=== PATIENT | male | born 1960 | race American Indian/Alaskan Native ===

== ENCOUNTER 2017-07-23 08:31 | Inpatient (IN) | payer BC ==
[~2017-07-23] VITALS: Ht 188 cm; Wt 133.4 kg
[2017-07-23] VITALS (14 sets, daily range): BP systolic 98–155; BP diastolic 52–68
[2017-07-23] MEDS ORDERED: midazolam 100mg in NS 100ml 100 ML IV PRN (08:45)
[2017-07-23] MEDS ORDERED: FENTANYL-0.9 % NACL/PF 100 ML IV PRN (08:45)
[2017-07-23] MEDS ORDERED: fentaNYL/PF 50MCG/1 ML 2ML syringe IV PRN (09:10)
[2017-07-23] MEDS ORDERED: potassium Cl 20 mEq SR tablet PO PRN (09:10)
[2017-07-23] MEDS ORDERED: midazolam 2 mg/2 ml injection IV ONE (09:10)
[2017-07-23] MEDS ORDERED: acetaminophen 325mg tablet PO PRN (09:10)
[2017-07-23] MEDS ORDERED: potassium Cl 40MEQ/NS 500ml 500 ML IV PRN ×2 (09:10)
[2017-07-23] MEDS ORDERED: potassium Cl 40MEQ/250ML bag 250 ML IV SCH (09:10)
[2017-07-23] MEDS ORDERED: ondansetron/PF 4mg/2ml inj IV PRN (09:10)
[2017-07-23] MEDS ORDERED: ipratropium/albuterol 3ml nebule NEB PRN (09:10)
[2017-07-23] MEDS ORDERED: normal saline 1000ml 1,000 ML IV SCH (09:10)
[2017-07-23 09:21] LABS: ABG BASE EXCESS -0.5 mmol/L (-2.0-3.0); ABG HCO3 22.8 mmol/L (22.0-26.0); ABG OXYGEN SATURATION 97.1 % (95-98); ABG PCO2 (T) 30.5 mmHg (35.0-48.0); ABG PH (T) 7.491 (7.350-7.450); FCOHb 0.1 % (0.5-1.5); FMetHb 0.1 % (0.3-1.12); FO2Hb 96.9 % (94-100); MINUTE VOLUME 10 L/min; PEEP 5 cm H2O; RESPIRATORY RATE 14 b/min; RESPIRATORY RATE (OBSERVED) 25 b/min; TIDAL VOLUME 450 mL; TOTAL HEMOGLOBIN 5.7 G/dl (14.0-18.0)
[2017-07-23] MEDS: midazolam 100mg in NS 100ml 100 ML IV PRN (09:32)
[2017-07-23] MEDS: FENTANYL-0.9 % NACL/PF 100 ML IV PRN (09:33)
[2017-07-23 09:38] LABS: BASOPHILS % (AUTO) 0.2 % (0-1); EOSINOPHILS # (AUTO) 0.4 X10'3 (0-0.9); EOSINOPHILS % (AUTO) 3.3 % (0-6); HEMATOCRIT 26.3 % (42.0-52.0); HEMOGLOBIN 8.7 g/dl (14.0-17.9); LYMPHOCYTES # (AUTO) 1.5 X10'3 (1.1-4.8); LYMPHOCYTES % (AUTO) 12.4 % (21-51); MEAN CORPUSCULAR HGB CONC 33.3 % (33.0-36.5); MEAN PLATELET VOLUME 13.1 FL (7.4-10.4); MONOCYTES # (AUTO) 0.6 X10'3 (0-0.9); MONOCYTES % (AUTO) 4.9 % (2-12); NEUTROPHILS # (AUTO) 9.6 X10'3 (1.8-7.7); NEUTROPHILS % (AUTO) 79.2 % (42-75); PLATELET COUNT 128 X10'3 (140-440); RED CELL DISTRIBUTION WIDTH 19.4 % (11.5-14.5); WHITE BLOOD COUNT 12.2 X10'3 (4.5-11.0)
[2017-07-23 09:49] LABS: TOTAL CELLS COUNTED 100
[2017-07-23 09:50] LABS: ANISOCYTOSIS 2+; PLATELET ESTIMATE DECREASED; POLYCHROMASIA 1+; TARGET CELLS FEW
[2017-07-23 09:51] LABS: PLATELET COUNT 128 X10'3 (140-440)
[2017-07-23 09:54] LABS: ALANINE AMINOTRANSFERASE 18 U/L (12-78); ALBUMIN 1.2 G/DL (3.4-5.0); ALKALINE PHOSPHATASE 117 IU/L (46-116); ANION GAP 12 (8-16); ASPARTATE AMINO TRANSFERASE 75 U/L (10-37); BILIRUBIN,TOTAL 5.8 MG/DL (0.1-1.0); BLOOD UREA NITROGEN 75 MG/DL (7-18); BUN/CREATININE RATIO 32.6 (5.4-32.0); CALCIUM 7.6 MG/DL (8.5-10.1); CHLORIDE 117 MMOL/L (99-107); MAGNESIUM 2.1 MG/DL (1.5-2.4); TOTAL CARBON DIOXIDE 25.7 MMOL/L (24-32); eGFR 30 ML/MIN
[2017-07-23 10:11] LABS: ALBUMIN/GLOBULIN RATIO 0.2 (1.1-1.5); TOTAL PROTEIN 8.1 G/DL (6.4-8.2)
[2017-07-23 10:16] LABS: GLUCOSE 190 MG/DL (70-104); PHOSPHORUS 4.3 MG/DL (2.3-4.5)
[2017-07-23 10:18] LABS: SODIUM 155 MMOL/L (135-145)
[2017-07-23 10:19] LABS: POTASSIUM 2.4 MMOL/L (3.5-5.1)
[2017-07-23 10:32] LABS: INR 2.1 INR; PARTIAL THROMBOPLASTIN TIME 46 SECONDS (22-32); PROTHROMBIN TIME 21.1 SECONDS (9.0-12.0)
[2017-07-23] MEDS: ipratropium/albuterol 3ml nebule NEB SCH ×4 (11:21→23:54)
[2017-07-23] MEDS ORDERED: dextrose 50%-water 50ml dispensing syringe IV PRN ×2 (11:40)
[2017-07-23] MEDS ORDERED: glucagon, human recombinant 1mg kit SUBCUT PRN (11:40)
[2017-07-23] MEDS ORDERED: MESSAGE TO PHARMACY PO ONE (11:40)
[2017-07-23] MEDS ORDERED: dextrose ORAL solution 15 GM/59 ML bottle PO PRN ×2 (11:40)
[2017-07-23] MEDS ORDERED: insulin regular, human vial - multi-dose SQ SCH (11:40)
[2017-07-23] MEDS ORDERED: insulin Lispro (HumaLOG) vial - multi-dose SQ SCH (11:40)
[2017-07-23 12:09] LABS: HEMOGLOBIN A1C 6.9 % (4.5-6.2)
[2017-07-23] MEDS: potassium Cl 40MEQ/250ML bag 250 ML IV PRN (12:39)
[2017-07-23] MEDS ORDERED: PANT40VI2 IV (14:34)
[2017-07-23] MEDS ORDERED: DOCU100C41 PO (14:34)
[2017-07-23] MEDS ORDERED: SENN-161 PO (14:34)
[2017-07-23] MEDS ORDERED: NYST1000 PO (14:34)
[2017-07-23] MEDS ORDERED: MULT1TAB74 PO (14:34)
[2017-07-23] MEDS ORDERED: THI100T PO (14:34)
[2017-07-23] MEDS ORDERED: LACTC PO (14:34)
[2017-07-23] MEDS ORDERED: INSU100V9 SQ (14:34)
[2017-07-23] MEDS ORDERED: FOLI1TAB16 PO (14:34)
[2017-07-23] MEDS: cefazolin 1gm/NS 100mL 100 ML IV SCH (17:04)
[2017-07-23 17:07] LABS: CLARITY,URINE SLIGHTLY CLOUDY (Clear); COLOR,URINE YELLOW (Yellow); GLUCOSE, URINE NEGATIVE (Neg); KETONES,URINE TRACE mg/dl (Neg); LEUKOCYTE ESTERASE ,URINE MODERATE (Neg); NITRITES, URINE NEGATIVE (Neg); OCCULT BLOOD,URINE LARGE (Neg); PH,URINE 5.5 (4.8-8.0); PROTEIN,URINE 30 mg/dl (Neg)
[2017-07-23 17:16] LABS: UA COLLECTION TYPE FOLEY CATH
[2017-07-23 17:17] LABS: RBC,URINE 20-50 /HPF (0-2)
[2017-07-23 17:18] LABS: BACTERIA,URINE FEW /HPF (Neg); MUCUS STRANDS FEW /LPF (Neg); SQUAMOUS EPITHELIAL CELL,UR FEW /LPF (FEW)
[2017-07-23 17:36] LABS: UA EOSINOPHILS NO EOS /HPF
[2017-07-23] MEDS: docusate sod 100mg capsule PO SCH (20:00)
[2017-07-23] MEDS ORDERED: docusate sod 100mg capsule PO SCH (20:00)
[2017-07-23] MEDS: lactobacillus rhamnosus 10,000 MMU CELLS/CAPSULE PO SCH (20:01)
[2017-07-23] MEDS: famotidine/PF 10 mg/ml inj IV SCH (20:03)
[2017-07-23 20:39] LABS: ALBUMIN 0.9 G/DL (3.4-5.0); BLOOD UREA NITROGEN 69 MG/DL (7-18); BUN/CREATININE RATIO 36.3 (5.4-32.0); CALCIUM 6.8 MG/DL (8.5-10.1); CHLORIDE 121 MMOL/L (99-107); TOTAL CARBON DIOXIDE 22.2 MMOL/L (24-32); eGFR 37 ML/MIN
[2017-07-23 20:52] LABS: ANION GAP 12 (8-16); POTASSIUM 3.2 MMOL/L (3.5-5.1)
[2017-07-23] MEDS ORDERED: INSULIN GLARGINE HUM REC ANLOG 6 UNIT SQ SCH (21:00)
[2017-07-23] MEDS: insulin glargine (Lantus) pen - multi-dose SQ SCH (21:00)
[2017-07-23 21:05] LABS: GLUCOSE 146 MG/DL (70-104)
[2017-07-23 21:06] LABS: SODIUM 155 MMOL/L (135-145)
[2017-07-23] MEDS ORDERED: potassium Cl 40MEQ/250ML bag 250 ML IV ONE (21:20)
[2017-07-23] MEDS ORDERED: sodium chloride 0.45% 1,000 ML IV SCH (21:21)
[2017-07-24] VITALS (23 sets, daily range): BP systolic 102–153; BP diastolic 47–70
[2017-07-24] MEDS: ipratropium/albuterol 3ml nebule NEB SCH ×6 (03:22→23:06)
[2017-07-24 04:25] LABS: ABG BASE EXCESS -1.4 mmol/L (-2.0-3.0); ABG HCO3 21.6 mmol/L (22.0-26.0); ABG PCO2 (T) 29.5 mmHg (35.0-48.0); ABG PH (T) 7.482 (7.350-7.450); ABG PO2 (T) 94.5 mmHg (83-108); ALLEN'S TEST Positive; FCOHb 0.3 % (0.5-1.5); FO2Hb 96.7 % (94-100); MINUTE VOLUME 15 L/min; PEEP 5 cm H2O; RESPIRATORY RATE 16 b/min; RESPIRATORY RATE (OBSERVED) 34 b/min; TIDAL VOLUME 400 mL; TOTAL HEMOGLOBIN 8.2 G/dl (14.0-18.0)
[2017-07-24 05:31] LABS: BASOPHILS % (AUTO) 0.4 % (0-1); EOSINOPHILS # (AUTO) 0.4 X10'3 (0-0.9); EOSINOPHILS % (AUTO) 3.5 % (0-6); HEMATOCRIT 24.3 % (42.0-52.0); HEMOGLOBIN 8.2 g/dl (14.0-17.9); LYMPHOCYTES # (AUTO) 1.8 X10'3 (1.1-4.8); LYMPHOCYTES % (AUTO) 14.1 % (21-51); MEAN CORPUSCULAR HEMOGLOBIN 34.9 PG (27.0-31.0); MEAN CORPUSCULAR HGB CONC 33.7 % (33.0-36.5); MEAN CORPUSCULAR VOLUME 103.5 FL (78-98); MEAN PLATELET VOLUME 12.5 FL (7.4-10.4); MONOCYTES # (AUTO) 0.5 X10'3 (0-0.9); MONOCYTES % (AUTO) 4.3 % (2-12); NEUTROPHILS # (AUTO) 9.9 X10'3 (1.8-7.7); NEUTROPHILS % (AUTO) 77.7 % (42-75); PLATELET COUNT 142 X10'3 (140-440); RED BLOOD COUNT 2.35 X10'6 (4.70-6.10); RED CELL DISTRIBUTION WIDTH 19.2 % (11.5-14.5); WHITE BLOOD COUNT 12.8 X10'3 (4.5-11.0)
[2017-07-24 05:48] LABS: LARGE PLATELETS FEW; PLATELET ESTIMATE NORMAL
[2017-07-24] MEDS: thiamine 100mg tablet PO SCH (07:27)
[2017-07-24] MEDS: cefazolin 1gm/NS 100mL 100 ML IV SCH ×4 (07:27→23:44)
[2017-07-24] MEDS: nystatin 500,000 unit/5ML UD oral suspension PO SCH ×4 (07:27→23:46)
[2017-07-24] MEDS: multivitamins, therapeutics tablet PO SCH (07:27)
[2017-07-24] MEDS: famotidine/PF 10 mg/ml inj IV SCH ×2 (07:27→20:12)
[2017-07-24] MEDS: folic acid 1mg tablet PO SCH (07:28)
[2017-07-24] MEDS: lactobacillus rhamnosus 10,000 MMU CELLS/CAPSULE PO SCH ×2 (07:28→20:12)
[2017-07-24] MEDS: docusate sod 100mg capsule PO SCH ×2 (07:34→20:00)
[2017-07-24] MEDS: sennosides 8.6mg tablet PO SCH (07:34)
[2017-07-24] MEDS ORDERED: phytonadione inj. 5 MG in normal saline 100ml IV soln 99.5 ML IV ONE (08:00)
[2017-07-24] MEDS: midazolam 100mg in NS 100ml 100 ML IV PRN (08:06)
[2017-07-24 08:38] LABS: BASOPHILS % (AUTO) 0.1 % (0-1); EOSINOPHILS # (AUTO) 0.4 X10'3 (0-0.9); EOSINOPHILS % (AUTO) 2.5 % (0-6); HEMATOCRIT 22.9 % (42.0-52.0); HEMOGLOBIN 7.9 g/dl (14.0-17.9); LYMPHOCYTES # (AUTO) 1.6 X10'3 (1.1-4.8); LYMPHOCYTES % (AUTO) 11.4 % (21-51); MEAN CORPUSCULAR HGB CONC 34.3 % (33.0-36.5); MEAN CORPUSCULAR VOLUME 101.8 FL (78-98); MEAN PLATELET VOLUME 13.1 FL (7.4-10.4); MONOCYTES # (AUTO) 0.4 X10'3 (0-0.9); MONOCYTES % (AUTO) 2.7 % (2-12); NEUTROPHILS # (AUTO) 11.8 X10'3 (1.8-7.7); NEUTROPHILS % (AUTO) 83.3 % (42-75); PLATELET COUNT 129 X10'3 (140-440); RED BLOOD COUNT 2.25 X10'6 (4.70-6.10); RED CELL DISTRIBUTION WIDTH 19.2 % (11.5-14.5); WHITE BLOOD COUNT 14.2 X10'3 (4.5-11.0)
[2017-07-24 08:52] LABS: D-DIMER 3.59 MG/L FEU (0-0.50); INR 1.3 INR; PARTIAL THROMBOPLASTIN TIME 35 SECONDS (22-32); PROTHROMBIN TIME 13.7 SECONDS (9.0-12.0)
[2017-07-24 09:11] LABS: ALANINE AMINOTRANSFERASE 22 U/L (12-78); ALBUMIN 0.9 G/DL (3.4-5.0); ALKALINE PHOSPHATASE 103 IU/L (46-116); ANION GAP 11 (8-16); ASPARTATE AMINO TRANSFERASE 67 U/L (10-37); BILIRUBIN,TOTAL 5.6 MG/DL (0.1-1.0); BLOOD UREA NITROGEN 73 MG/DL (7-18); BUN/CREATININE RATIO 38.4 (5.4-32.0); CALCIUM 7.5 MG/DL (8.5-10.1); CHLORIDE 120 MMOL/L (99-107); MAGNESIUM 1.9 MG/DL (1.5-2.4); SODIUM 154 MMOL/L (135-145); TOTAL CARBON DIOXIDE 22.7 MMOL/L (24-32); eGFR 37 ML/MIN
[2017-07-24 09:15] LABS: ALBUMIN/GLOBULIN RATIO 0.1 (1.1-1.5); GLUCOSE 162 MG/DL (70-104); PHOSPHORUS 4.4 MG/DL (2.3-4.5); POTASSIUM 3.4 MMOL/L (3.5-5.1); TOTAL PROTEIN 7.3 G/DL (6.4-8.2)
[2017-07-24 09:34] LABS: PLATELET COUNT 129 X10'3 (140-440)
[2017-07-24 09:40] LABS: PLATELET ESTIMATE DECREASED
[2017-07-24 09:41] LABS: LARGE PLATELETS FEW
[2017-07-24 10:46] LABS: PREALBUMIN 7.5 MG/DL (19-36)
[2017-07-24] MEDS: mineral oil/petrolatum ophthal oint EACHEYE SCH ×2 (14:29→20:12)
[2017-07-24] MEDS: fluconazole-Diflucan 200mg/NS 100 ML IV SCH (14:30)
[2017-07-24] MEDS: FENTANYL-0.9 % NACL/PF 100 ML IV PRN (20:07)
[2017-07-24] MEDS: insulin glargine (Lantus) pen - multi-dose SQ SCH (21:00)
[2017-07-24] MEDS ORDERED: furosemide 40mg/4ml inj IV ONE (21:10)
[2017-07-24] MEDS ORDERED: furosemide 40mg/4ml inj ONE (21:15)
[2017-07-25] VITALS (28 sets, daily range): BP systolic 95–135; BP diastolic 42–62
[2017-07-25] MEDS ORDERED: albumin (human) 25% 100 ML IV solution IV ONE (01:40)
[2017-07-25] MEDS: ipratropium/albuterol 3ml nebule NEB SCH ×6 (02:53→22:53)
[2017-07-25] MEDS: mineral oil/petrolatum ophthal oint EACHEYE SCH ×4 (02:57→19:21)
[2017-07-25] MEDS: acetaminophen 325mg tablet PO PRN ×2 (03:17→22:36)
[2017-07-25 03:55] LABS: ABG BASE EXCESS -4.9 mmol/L (-2.0-3.0); ABG OXYGEN SATURATION 92.3 % (95-98); ABG PCO2 (T) 26.7 mmHg (35.0-48.0); ABG PH (T) 7.451 (7.350-7.450); ABG PO2 (T) 73.2 mmHg (83-108); ALLEN'S TEST Positive; FCOHb 0.3 % (0.5-1.5); FMetHb 0.1 % (0.3-1.12); FO2Hb 91.9 % (94-100); MINUTE VOLUME 17 L/min; PATIENT TEMPERATURE 38.3; PEEP 5 cm H2O; RESPIRATORY RATE 16 b/min; RESPIRATORY RATE (OBSERVED) 33 b/min; TIDAL VOLUME 400 mL; TOTAL HEMOGLOBIN 7.9 G/dl (14.0-18.0)
[2017-07-25 05:36] LABS: BASOPHILS % (AUTO) 0.3 % (0-1); EOSINOPHILS # (AUTO) 0.3 X10'3 (0-0.9); HEMATOCRIT 22.6 % (42.0-52.0); HEMOGLOBIN 7.1 g/dl (14.0-17.9); LYMPHOCYTES # (AUTO) 1.4 X10'3 (1.1-4.8); LYMPHOCYTES % (AUTO) 10.3 % (21-51); MEAN CORPUSCULAR HGB CONC 31.3 % (33.0-36.5); MEAN CORPUSCULAR VOLUME 105.3 FL (78-98); MEAN PLATELET VOLUME 12.8 FL (7.4-10.4); MONOCYTES # (AUTO) 0.2 X10'3 (0-0.9); MONOCYTES % (AUTO) 1.4 % (2-12); NEUTROPHILS # (AUTO) 11.3 X10'3 (1.8-7.7); PLATELET COUNT 130 X10'3 (140-440); RED BLOOD COUNT 2.15 X10'6 (4.70-6.10); RED CELL DISTRIBUTION WIDTH 19.8 % (11.5-14.5); WHITE BLOOD COUNT 13.2 X10'3 (4.5-11.0)
[2017-07-25 06:07] LABS: ALANINE AMINOTRANSFERASE 23 U/L (12-78); ALBUMIN 1.6 G/DL (3.4-5.0); ALKALINE PHOSPHATASE 105 IU/L (46-116); ANION GAP 14 (8-16); ASPARTATE AMINO TRANSFERASE 67 U/L (10-37); BILIRUBIN,TOTAL 6.2 MG/DL (0.1-1.0); BLOOD UREA NITROGEN 82 MG/DL (7-18); BUN/CREATININE RATIO 32.8 (5.4-32.0); CALCIUM 7.6 MG/DL (8.5-10.1); CHLORIDE 118 MMOL/L (99-107); MAGNESIUM 1.9 MG/DL (1.5-2.4); SODIUM 152 MMOL/L (135-145); TOTAL CARBON DIOXIDE 20.2 MMOL/L (24-32); eGFR 27 ML/MIN
[2017-07-25 06:09] LABS: ALBUMIN/GLOBULIN RATIO 0.3 (1.1-1.5); GLUCOSE 169 MG/DL (70-104); PHOSPHORUS 4.5 MG/DL (2.3-4.5); POTASSIUM 3.6 MMOL/L (3.5-5.1); TOTAL PROTEIN 7.3 G/DL (6.4-8.2)
[2017-07-25] MEDS: fluconazole-Diflucan 200mg/NS 100 ML IV SCH (07:08)
[2017-07-25] MEDS: nystatin 500,000 unit/5ML UD oral suspension PO SCH ×2 (07:09→16:01)
[2017-07-25] MEDS: famotidine/PF 10 mg/ml inj IV SCH ×2 (07:09→19:22)
[2017-07-25] MEDS: sennosides 8.6mg tablet PO SCH (07:10)
[2017-07-25] MEDS: folic acid 1mg tablet PO SCH (07:10)
[2017-07-25] MEDS: lactobacillus rhamnosus 10,000 MMU CELLS/CAPSULE PO SCH ×2 (07:10→19:22)
[2017-07-25] MEDS: thiamine 100mg tablet PO SCH (07:10)
[2017-07-25] MEDS: multivitamins, therapeutics tablet PO SCH (07:10)
[2017-07-25] MEDS: docusate sod 100mg capsule PO SCH ×2 (07:11→19:24)
[2017-07-25] MEDS: cefazolin 1gm/NS 100mL 100 ML IV SCH (07:11)
[2017-07-25] MEDS ORDERED: furosemide 40mg/4ml inj IV ONE (11:35)
[2017-07-25] MEDS: midazolam 100mg in NS 100ml 100 ML IV PRN (12:15)
[2017-07-25] MEDS: dextrose 5%-water 1,000 ML IV SCH ×2 (12:15→20:51)
[2017-07-25] MEDS: FENTANYL-0.9 % NACL/PF 100 ML IV PRN (12:16)
[2017-07-25] MEDS: insulin regular, human vial - multi-dose SQ SCH (16:03)
[2017-07-25] MEDS ORDERED: metroNIDAZOLE 500mg tablet PO SCH (20:00)
[2017-07-25] MEDS ORDERED: cefepime 2g/NS 100ml ADVANTAGE 100 ML IV SCH (20:00)
[2017-07-25] MEDS: insulin glargine (Lantus) pen - multi-dose SQ SCH (20:46)
[2017-07-26] VITALS (25 sets, daily range): BP systolic 108–158; BP diastolic 49–84
[2017-07-26] MEDS: nystatin 500,000 unit/5ML UD oral suspension PO SCH ×3 (00:40→15:34)
[2017-07-26] MEDS: ipratropium/albuterol 3ml nebule NEB SCH ×6 (02:48→23:20)
[2017-07-26] MEDS: mineral oil/petrolatum ophthal oint EACHEYE SCH ×4 (02:50→20:15)
[2017-07-26] MEDS: dextrose 5%-water 1,000 ML IV SCH ×2 (02:53→17:05)
[2017-07-26] MEDS: insulin regular, human vial - multi-dose SQ SCH (03:02)
[2017-07-26 03:06] LABS: ABG BASE EXCESS -4.7 mmol/L (-2.0-3.0); ABG HCO3 18.5 mmol/L (22.0-26.0); ABG OXYGEN SATURATION 94.4 % (95-98); ABG PCO2 (T) 26.9 mmHg (35.0-48.0); ABG PH (T) 7.455 (7.350-7.450); ABG PO2 (T) 72.4 mmHg (83-108); ALLEN'S TEST Positive; FCOHb 0.3 % (0.5-1.5); FMetHb 0.2 % (0.3-1.12); FO2Hb 93.9 % (94-100); MINUTE VOLUME 12 L/min; PATIENT TEMPERATURE 36.9; PEEP 5 cm H2O; RESPIRATORY RATE 16 b/min; RESPIRATORY RATE (OBSERVED) 31 b/min; TIDAL VOLUME 400 mL; TOTAL HEMOGLOBIN 8.4 G/dl (14.0-18.0)
[2017-07-26 05:24] LABS: BASOPHILS % (AUTO) 0.3 % (0-1); EOSINOPHILS # (AUTO) 0.4 X10'3 (0-0.9); EOSINOPHILS % (AUTO) 2.7 % (0-6); HEMATOCRIT 24.1 % (42.0-52.0); HEMOGLOBIN 8.1 g/dl (14.0-17.9); LYMPHOCYTES # (AUTO) 1.9 X10'3 (1.1-4.8); LYMPHOCYTES % (AUTO) 13.9 % (21-51); MEAN CORPUSCULAR HEMOGLOBIN 33.4 PG (27.0-31.0); MEAN CORPUSCULAR HGB CONC 33.6 % (33.0-36.5); MEAN CORPUSCULAR VOLUME 99.3 FL (78-98); MEAN PLATELET VOLUME 12.3 FL (7.4-10.4); MONOCYTES # (AUTO) 0.6 X10'3 (0-0.9); MONOCYTES % (AUTO) 4.7 % (2-12); NEUTROPHILS # (AUTO) 10.6 X10'3 (1.8-7.7); NEUTROPHILS % (AUTO) 78.4 % (42-75); PLATELET COUNT 146 X10'3 (140-440); RED BLOOD COUNT 2.43 X10'6 (4.70-6.10); RED CELL DISTRIBUTION WIDTH 24.6 % (11.5-14.5); WHITE BLOOD COUNT 13.6 X10'3 (4.5-11.0)
[2017-07-26] MEDS: FENTANYL-0.9 % NACL/PF 100 ML IV PRN (05:49)
[2017-07-26 06:10] LABS: ALANINE AMINOTRANSFERASE 14 U/L (12-78); ALBUMIN 1.2 G/DL (3.4-5.0); ALKALINE PHOSPHATASE 87 IU/L (46-116); ANION GAP 12 (8-16); ASPARTATE AMINO TRANSFERASE 64 U/L (10-37); BILIRUBIN,TOTAL 6.3 MG/DL (0.1-1.0); BLOOD UREA NITROGEN 89 MG/DL (7-18); BUN/CREATININE RATIO 34.2 (5.4-32.0); CALCIUM 7.7 MG/DL (8.5-10.1); CHLORIDE 118 MMOL/L (99-107); MAGNESIUM 1.8 MG/DL (1.5-2.4); SODIUM 150 MMOL/L (135-145); TOTAL CARBON DIOXIDE 20.3 MMOL/L (24-32); eGFR 26 ML/MIN
[2017-07-26 06:41] LABS: ALBUMIN/GLOBULIN RATIO 0.2 (1.1-1.5); GLUCOSE 170 MG/DL (70-104); PHOSPHORUS 4.8 MG/DL (2.3-4.5); POTASSIUM 3.2 MMOL/L (3.5-5.1); TOTAL PROTEIN 7.4 G/DL (6.4-8.2)
[2017-07-26] MEDS ORDERED: vancomycin/NS 1 GM ADD-VANTAGE 250 ML IV ONE (07:10)
[2017-07-26] MEDS: docusate sod 100mg capsule PO SCH (08:00)
[2017-07-26] MEDS: potassium Cl 20 mEq SR tablet PO PRN ×2 (09:07→17:05)
[2017-07-26] MEDS: famotidine/PF 10 mg/ml inj IV SCH ×2 (09:07→20:15)
[2017-07-26] MEDS: thiamine 100mg tablet PO SCH (09:07)
[2017-07-26] MEDS: fluconazole-Diflucan 200mg/NS 100 ML IV SCH (09:07)
[2017-07-26] MEDS: multivitamins, therapeutics tablet PO SCH (09:08)
[2017-07-26] MEDS: folic acid 1mg tablet PO SCH (09:08)
[2017-07-26] MEDS: lactobacillus rhamnosus 10,000 MMU CELLS/CAPSULE PO SCH ×2 (09:08→20:15)
[2017-07-26] MEDS: sennosides 8.6mg tablet PO SCH (09:08)
[2017-07-26] MEDS: metroNIDAZOLE 500mg tablet PO SCH ×2 (09:08→15:34)
[2017-07-26] MEDS: cefepime 1GM/NS ADD-VANTAGE 100 ML IV SCH ×2 (09:13→15:34)
[2017-07-26 09:26] LABS: BILIRUBIN,DIRECT 4.7 MG/DL (0-0.3)
[2017-07-26] MEDS ORDERED: metoclopramide 5 mg/ml inj IV PRN (10:50)
[2017-07-26] MEDS: metoclopramide 5 mg/ml inj IV SCH ×3 (11:50→20:21)
[2017-07-26] MEDS: methylnaltrexone br 12mg/0.6ml inj***SubQ only SQ SCH (12:44)
[2017-07-26] MEDS: acetaminophen 325mg tablet PO PRN (17:05)
[2017-07-26] MEDS: midazolam 100mg in NS 100ml 100 ML IV PRN (17:07)
[2017-07-26] MEDS: docusate sodium 100mg/10ml UD cup PO SCH (20:00)
[2017-07-26] MEDS: heparin, porcine 5000 units/ml vial SQ SCH (20:17)
[2017-07-26] MEDS: erythromycin lactobionate IV 250 MG in normal saline 100ml IV soln 100 ML IV SCH (20:20)
[2017-07-26] MEDS ORDERED: potassium Cl oral solution 20 MEQ/15 ML PO PRN (20:54)
[2017-07-26] MEDS: insulin glargine (Lantus) pen - multi-dose SQ SCH (21:03)
[2017-07-26] MEDS: potassium Cl oral solution 20 MEQ/15 ML PO PRN (21:20)
[2017-07-27] VITALS (31 sets, daily range): BP systolic 84–135; BP diastolic 47–62
[2017-07-27] MEDS: metroNIDAZOLE 500mg tablet PO SCH ×3 (00:11→15:43)
[2017-07-27] MEDS: nystatin 500,000 unit/5ML UD oral suspension PO SCH ×3 (00:11→15:43)
[2017-07-27] MEDS: FENTANYL-0.9 % NACL/PF 100 ML IV PRN ×2 (00:13→12:12)
[2017-07-27] MEDS: cefepime 1GM/NS ADD-VANTAGE 100 ML IV SCH ×3 (00:14→15:43)
[2017-07-27] MEDS: metoclopramide 5 mg/ml inj IV SCH ×4 (02:15→20:09)
[2017-07-27] MEDS: erythromycin lactobionate IV 250 MG in normal saline 100ml IV soln 100 ML IV SCH (02:15)
[2017-07-27] MEDS: mineral oil/petrolatum ophthal oint EACHEYE SCH ×4 (02:15→19:59)
[2017-07-27] MEDS: ipratropium/albuterol 3ml nebule NEB SCH ×6 (03:18→22:29)
[2017-07-27] MEDS: dextrose 5%-water 1,000 ML IV SCH (03:29)
[2017-07-27] MEDS: insulin Lispro (HumaLOG) vial - multi-dose SQ SCH ×3 (03:32→14:21)
[2017-07-27 03:41] LABS: ABG BASE EXCESS -8.9 mmol/L (-2.0-3.0); ABG HCO3 15.4 mmol/L (22.0-26.0); ABG OXYGEN SATURATION 94.6 % (95-98); ABG PCO2 (T) 26.4 mmHg (35.0-48.0); ABG PH (T) 7.381 (7.350-7.450); ALLEN'S TEST Positive; FCOHb 0.3 % (0.5-1.5); FMetHb 0.1 % (0.3-1.12); FO2Hb 94.2 % (94-100); MINUTE VOLUME 10 L/min; PATIENT TEMPERATURE 36.6; PEEP 5 cm H2O; RESPIRATORY RATE 16 b/min; RESPIRATORY RATE (OBSERVED) 24 b/min; TIDAL VOLUME 400 mL; TOTAL HEMOGLOBIN 7.1 G/dl (14.0-18.0)
[2017-07-27 04:20] LABS: BASOPHILS # (AUTO) 0.1 X10'3 (0-0.2); BASOPHILS % (AUTO) 0.8 % (0-1); EOSINOPHILS # (AUTO) 0.4 X10'3 (0-0.9); EOSINOPHILS % (AUTO) 3.6 % (0-6); LYMPHOCYTES # (AUTO) 1.5 X10'3 (1.1-4.8); LYMPHOCYTES % (AUTO) 12.6 % (21-51); MEAN CORPUSCULAR HGB CONC 32.8 % (33.0-36.5); MEAN CORPUSCULAR VOLUME 100.7 FL (78-98); MEAN PLATELET VOLUME 12.4 FL (7.4-10.4); MONOCYTES # (AUTO) 0.9 X10'3 (0-0.9); MONOCYTES % (AUTO) 7.4 % (2-12); NEUTROPHILS # (AUTO) 8.8 X10'3 (1.8-7.7); NEUTROPHILS % (AUTO) 75.6 % (42-75); PLATELET COUNT 136 X10'3 (140-440); RED BLOOD COUNT 2.02 X10'6 (4.70-6.10); RED CELL DISTRIBUTION WIDTH 24.5 % (11.5-14.5); WHITE BLOOD COUNT 11.7 X10'3 (4.5-11.0)
[2017-07-27 04:30] LABS: ALANINE AMINOTRANSFERASE 12 U/L (12-78); ALBUMIN 0.9 G/DL (3.4-5.0); ALKALINE PHOSPHATASE 78 IU/L (46-116); ANION GAP 13 (8-16); ASPARTATE AMINO TRANSFERASE 50 U/L (10-37); BILIRUBIN,TOTAL 6.1 MG/DL (0.1-1.0); BLOOD UREA NITROGEN 87 MG/DL (7-18); BUN/CREATININE RATIO 33.5 (5.4-32.0); CALCIUM 7.1 MG/DL (8.5-10.1); CHLORIDE 115 MMOL/L (99-107); MAGNESIUM 1.6 MG/DL (1.5-2.4); SODIUM 145 MMOL/L (135-145); TOTAL CARBON DIOXIDE 17.3 MMOL/L (24-32); eGFR 26 ML/MIN
[2017-07-27 04:32] LABS: HEMOGLOBIN 6.7 g/dl (14.0-17.9)
[2017-07-27 04:33] LABS: HEMATOCRIT 20.4 % (42.0-52.0)
[2017-07-27 05:12] LABS: GLUCOSE 186 MG/DL (70-104); PHOSPHORUS 5.7 MG/DL (2.3-4.5); POTASSIUM 3.6 MMOL/L (3.5-5.1); TOTAL PROTEIN 6.7 G/DL (6.4-8.2)
[2017-07-27 05:14] LABS: ALBUMIN/GLOBULIN RATIO 0.2 (1.1-1.5)
[2017-07-27 05:17] LABS: TOTAL CELLS COUNTED 100
[2017-07-27 05:18] LABS: PLATELET ESTIMATE DECREASED
[2017-07-27 05:20] LABS: ANISOCYTOSIS 3+; LARGE PLATELETS FEW; POLYCHROMASIA 1+
[2017-07-27] MEDS: fluconazole-Diflucan 200mg/NS 100 ML IV SCH (06:51)
[2017-07-27] MEDS: thiamine 100mg tablet PO SCH (08:04)
[2017-07-27] MEDS: lactobacillus rhamnosus 10,000 MMU CELLS/CAPSULE PO SCH ×2 (08:04→20:08)
[2017-07-27] MEDS: heparin, porcine 5000 units/ml vial SQ SCH ×2 (08:04→20:08)
[2017-07-27] MEDS: folic acid 1mg tablet PO SCH (08:04)
[2017-07-27] MEDS: famotidine/PF 10 mg/ml inj IV SCH ×2 (08:04→20:09)
[2017-07-27] MEDS: multivitamins, therapeutics tablet PO SCH (08:04)
[2017-07-27] MEDS: docusate sodium 100mg/10ml UD cup PO SCH ×2 (09:35→20:00)
[2017-07-27] MEDS: midazolam 100mg in NS 100ml 100 ML IV PRN (12:11)
[2017-07-27] MEDS: normal saline 1000ml 1,000 ML IV SCH ×3 (12:12→22:44)
[2017-07-27] MEDS ORDERED: ZOF4I IV (15:09)
[2017-07-27] MEDS ORDERED: FLUC200P10 IV (15:09)
[2017-07-27] MEDS ORDERED: [UNRECOGNIZED DRUG - CODE] IV (15:09)
[2017-07-27] MEDS ORDERED: FAMO20VI10 IV (15:09)
[2017-07-27] MEDS ORDERED: VANC1PLA9 IV (15:09)
[2017-07-27] MEDS ORDERED: HEPA500017 SQ (15:09)
[2017-07-27] MEDS ORDERED: CEFE1FRO IV (15:09)
[2017-07-27] MEDS ORDERED: METR500T4 PO (15:09)
[2017-07-27] MEDS ORDERED: METH12DI SQ (15:09)
[2017-07-27] MEDS ORDERED: IPRA3AMP9 NEB ×2 (15:09)
[2017-07-27] MEDS: acetaminophen 325mg tablet PO PRN (20:08)
[2017-07-27] MEDS: insulin glargine (Lantus) pen - multi-dose SQ SCH (21:33)
[2017-07-27] MEDS: insulin regular, human vial - multi-dose SQ SCH (22:08)
[2017-07-28] VITALS (24 sets, daily range): BP systolic 91–114; BP diastolic 45–60
[2017-07-28] MEDS: cefepime 1GM/NS ADD-VANTAGE 100 ML IV SCH ×3 (00:11→16:19)
[2017-07-28] MEDS: metroNIDAZOLE 500mg tablet PO SCH (00:12)
[2017-07-28] MEDS: nystatin 500,000 unit/5ML UD oral suspension PO SCH ×3 (00:12→16:19)
[2017-07-28] MEDS ORDERED: albumin (Human) 5% 250 ML IV solution IV STA (00:48)
[2017-07-28 01:31] LABS: BASOPHILS % (AUTO) 0.2 % (0-1); EOSINOPHILS # (AUTO) 0.3 X10'3 (0-0.9); EOSINOPHILS % (AUTO) 2.3 % (0-6); HEMATOCRIT 23.7 % (42.0-52.0); HEMOGLOBIN 8.2 g/dl (14.0-17.9); LYMPHOCYTES # (AUTO) 1.5 X10'3 (1.1-4.8); MEAN CORPUSCULAR HEMOGLOBIN 32.9 PG (27.0-31.0); MEAN CORPUSCULAR HGB CONC 34.5 % (33.0-36.5); MEAN CORPUSCULAR VOLUME 95.2 FL (78-98); MEAN PLATELET VOLUME 10.5 FL (7.4-10.4); MONOCYTES # (AUTO) 1.2 X10'3 (0-0.9); MONOCYTES % (AUTO) 8.7 % (2-12); NEUTROPHILS # (AUTO) 10.5 X10'3 (1.8-7.7); NEUTROPHILS % (AUTO) 77.8 % (42-75); PLATELET COUNT 121 X10'3 (140-440); RED BLOOD COUNT 2.49 X10'6 (4.70-6.10); RED CELL DISTRIBUTION WIDTH 23.5 % (11.5-14.5); WHITE BLOOD COUNT 13.5 X10'3 (4.5-11.0)
[2017-07-28 01:37] LABS: ALANINE AMINOTRANSFERASE 15 U/L (12-78); ALBUMIN 0.8 G/DL (3.4-5.0); ALKALINE PHOSPHATASE 76 IU/L (46-116); ANION GAP 13 (8-16); BILIRUBIN,TOTAL 6.4 MG/DL (0.1-1.0); BLOOD UREA NITROGEN 83 MG/DL (7-18); BUN/CREATININE RATIO 36.1 (5.4-32.0); CALCIUM 6.9 MG/DL (8.5-10.1); CHLORIDE 116 MMOL/L (99-107); MAGNESIUM 1.5 MG/DL (1.5-2.4); SODIUM 144 MMOL/L (135-145); TOTAL CARBON DIOXIDE 15.1 MMOL/L (24-32); eGFR 30 ML/MIN
[2017-07-28 01:45] LABS: GLUCOSE 135 MG/DL (70-104); POTASSIUM 4.1 MMOL/L (3.5-5.1)
[2017-07-28 01:46] LABS: ALBUMIN/GLOBULIN RATIO 0.1 (1.1-1.5); ASPARTATE AMINO TRANSFERASE 67 U/L (10-37); PHOSPHORUS 5.5 MG/DL (2.3-4.5); TOTAL PROTEIN 6.5 G/DL (6.4-8.2)
[2017-07-28 02:16] LABS: ABG BASE EXCESS -9.9 mmol/L (-2.0-3.0); ABG HCO3 13.8 mmol/L (22.0-26.0); ABG OXYGEN SATURATION 94.8 % (95-98); ABG PCO2 (T) 23.3 mmHg (35.0-48.0); ABG PH (T) 7.388 (7.350-7.450); ABG PO2 (T) 75.7 mmHg (83-108); ALLEN'S TEST Positive; FCOHb 0.3 % (0.5-1.5); FMetHb 0.1 % (0.3-1.12); FO2Hb 94.4 % (94-100); MINUTE VOLUME 11 L/min; PATIENT TEMPERATURE 36.5; PEEP 5 cm H2O; RESPIRATORY RATE 16 b/min; RESPIRATORY RATE (OBSERVED) 27 b/min; TIDAL VOLUME 400 mL; TOTAL HEMOGLOBIN 9.5 G/dl (14.0-18.0)
[2017-07-28] MEDS: metoclopramide 5 mg/ml inj IV SCH ×4 (02:29→20:00)
[2017-07-28] MEDS: insulin regular, human vial - multi-dose SQ SCH (02:31)
[2017-07-28] MEDS: mineral oil/petrolatum ophthal oint EACHEYE SCH ×4 (02:33→20:08)
[2017-07-28] MEDS: ipratropium/albuterol 3ml nebule NEB SCH ×6 (03:08→23:10)
[2017-07-28] MEDS: normal saline 1000ml 1,000 ML IV SCH ×3 (06:42→16:19)
[2017-07-28] MEDS: FENTANYL-0.9 % NACL/PF 100 ML IV PRN ×3 (06:43→22:10)
[2017-07-28] MEDS: methylnaltrexone br 12mg/0.6ml inj***SubQ only SQ SCH ×2 (08:00→10:34)
[2017-07-28] MEDS: docusate sodium 100mg/10ml UD cup PO SCH ×2 (08:00→20:08)
[2017-07-28] MEDS: lactobacillus rhamnosus 10,000 MMU CELLS/CAPSULE PO SCH ×2 (08:16→20:08)
[2017-07-28] MEDS: thiamine 100mg tablet PO SCH (08:16)
[2017-07-28] MEDS: famotidine/PF 10 mg/ml inj IV SCH ×2 (08:16→20:08)
[2017-07-28] MEDS: heparin, porcine 5000 units/ml vial SQ SCH ×2 (08:16→20:09)
[2017-07-28] MEDS: folic acid 1mg tablet PO SCH (08:17)
[2017-07-28] MEDS: multivitamins, therapeutics tablet PO SCH (08:17)
[2017-07-28] MEDS: metroNIDAZOLE-Flagyl 500mg/NS 100 ML IV SCH ×2 (08:22→16:19)
[2017-07-28] MEDS: fluconazole-Diflucan 200mg/NS 100 ML IV SCH (08:22)
[2017-07-28 11:13] LABS: PREALBUMIN 6.3 MG/DL (19-36)
[2017-07-28] MEDS: insulin glargine (Lantus) pen - multi-dose SQ SCH (21:17)
[2017-07-29] VITALS (24 sets, daily range): BP systolic 91–118; BP diastolic 51–69
[2017-07-29] MEDS: cefepime 1GM/NS ADD-VANTAGE 100 ML IV SCH ×3 (00:10→15:35)
[2017-07-29] MEDS: nystatin 500,000 unit/5ML UD oral suspension PO SCH ×3 (00:10→15:35)
[2017-07-29] MEDS: normal saline 1000ml 1,000 ML IV SCH ×4 (00:19→21:24)
[2017-07-29] MEDS: metroNIDAZOLE-Flagyl 500mg/NS 100 ML IV SCH ×3 (01:08→15:35)
[2017-07-29] MEDS: metoclopramide 5 mg/ml inj IV SCH ×4 (02:00→20:00)
[2017-07-29] MEDS: mineral oil/petrolatum ophthal oint EACHEYE SCH ×4 (02:57→20:55)
[2017-07-29] MEDS: ipratropium/albuterol 3ml nebule NEB SCH ×6 (03:25→23:14)
[2017-07-29 03:26] LABS: ABG BASE EXCESS -11.5 mmol/L (-2.0-3.0); ABG HCO3 12.9 mmol/L (22.0-26.0); ABG OXYGEN SATURATION 95.2 % (95-98); ABG PCO2 (T) 24.2 mmHg (35.0-48.0); ABG PH (T) 7.343 (7.350-7.450); ABG PO2 (T) 80.3 mmHg (83-108); ALLEN'S TEST Positive; FCOHb 0.3 % (0.5-1.5); FMetHb 0.3 % (0.3-1.12); FO2Hb 94.6 % (94-100); MINUTE VOLUME 10 L/min; PATIENT TEMPERATURE 36.4; PEEP 5 cm H2O; RESPIRATORY RATE 16 b/min; RESPIRATORY RATE (OBSERVED) 20 b/min; TIDAL VOLUME 400 mL; TOTAL HEMOGLOBIN 9.9 G/dl (14.0-18.0)
[2017-07-29 06:11] LABS: BASOPHILS # (AUTO) 0.1 X10'3 (0-0.2); BASOPHILS % (AUTO) 0.4 % (0-1); EOSINOPHILS # (AUTO) 0.5 X10'3 (0-0.9); EOSINOPHILS % (AUTO) 3.4 % (0-6); HEMATOCRIT 25.3 % (42.0-52.0); HEMOGLOBIN 8.5 g/dl (14.0-17.9); LYMPHOCYTES # (AUTO) 1.6 X10'3 (1.1-4.8); LYMPHOCYTES % (AUTO) 11.5 % (21-51); MEAN CORPUSCULAR HEMOGLOBIN 32.7 PG (27.0-31.0); MEAN CORPUSCULAR HGB CONC 33.6 % (33.0-36.5); MEAN CORPUSCULAR VOLUME 97.5 FL (78-98); MEAN PLATELET VOLUME 11.5 FL (7.4-10.4); MONOCYTES # (AUTO) 1.1 X10'3 (0-0.9); MONOCYTES % (AUTO) 7.8 % (2-12); NEUTROPHILS # (AUTO) 10.9 X10'3 (1.8-7.7); NEUTROPHILS % (AUTO) 76.9 % (42-75); PLATELET COUNT 153 X10'3 (140-440); RED BLOOD COUNT 2.59 X10'6 (4.70-6.10); RED CELL DISTRIBUTION WIDTH 25.4 % (11.5-14.5); WHITE BLOOD COUNT 14.2 X10'3 (4.5-11.0)
[2017-07-29 06:28] LABS: ALANINE AMINOTRANSFERASE 17 U/L (12-78); ALKALINE PHOSPHATASE 84 IU/L (46-116); ANION GAP 14 (8-16); ASPARTATE AMINO TRANSFERASE 64 U/L (10-37); BILIRUBIN,TOTAL 6.8 MG/DL (0.1-1.0); BLOOD UREA NITROGEN 80 MG/DL (7-18); BUN/CREATININE RATIO 38.1 (5.4-32.0); CALCIUM 7.5 MG/DL (8.5-10.1); CHLORIDE 118 MMOL/L (99-107); MAGNESIUM 1.6 MG/DL (1.5-2.4); SODIUM 147 MMOL/L (135-145); eGFR 33 ML/MIN
[2017-07-29 06:38] LABS: ALBUMIN/GLOBULIN RATIO 0.2 (1.1-1.5); GLUCOSE 112 MG/DL (70-104); PHOSPHORUS 5.8 MG/DL (2.3-4.5); POTASSIUM 3.7 MMOL/L (3.5-5.1); TOTAL PROTEIN 6.9 G/DL (6.4-8.2)
[2017-07-29 06:42] LABS: TOTAL CARBON DIOXIDE 14.6 MMOL/L (24-32)
[2017-07-29] MEDS: docusate sodium 100mg/10ml UD cup PO SCH ×2 (07:22→20:55)
[2017-07-29] MEDS: heparin, porcine 5000 units/ml vial SQ SCH ×2 (07:23→21:02)
[2017-07-29] MEDS: fluconazole-Diflucan 200mg/NS 100 ML IV SCH (07:23)
[2017-07-29] MEDS: famotidine/PF 10 mg/ml inj IV SCH ×2 (07:23→20:55)
[2017-07-29] MEDS: thiamine 100mg tablet PO SCH (07:24)
[2017-07-29] MEDS: folic acid 1mg tablet PO SCH (07:24)
[2017-07-29] MEDS: lactobacillus rhamnosus 10,000 MMU CELLS/CAPSULE PO SCH ×2 (07:24→20:59)
[2017-07-29] MEDS: multivitamins, therapeutics tablet PO SCH (07:24)
[2017-07-29] MEDS: FENTANYL-0.9 % NACL/PF 100 ML IV PRN (07:25)
[2017-07-29 07:54] LABS: NUCLEATED RED BLOOD CELLS 1 /100WBC (0-0); TOTAL CELLS COUNTED 100
[2017-07-29 07:55] LABS: ANISOCYTOSIS 3+; PLATELET ESTIMATE NORMAL; POLYCHROMASIA 2+; TOXIC GRANULATION 1+
[2017-07-29 07:56] LABS: BURR CELLS 1+; HYPOCHROMASIA 1+; TARGET CELLS 1+
[2017-07-29] MEDS ORDERED: metoclopramide 10mg/10 ml UD oral solution PO PRN (09:45)
[2017-07-29] MEDS: metoclopramide 10mg/10 ml UD oral solution PO SCH (20:55)
[2017-07-29] MEDS: insulin glargine (Lantus) pen - multi-dose SQ SCH (21:09)
[2017-07-30] VITALS (24 sets, daily range): BP systolic 103–147; BP diastolic 56–77
[2017-07-30] MEDS: mineral oil/petrolatum ophthal oint EACHEYE SCH ×4 (02:00→19:56)
[2017-07-30] MEDS: metoclopramide 5 mg/ml inj IV SCH ×5 (02:00→20:00)
[2017-07-30] MEDS: metroNIDAZOLE-Flagyl 500mg/NS 100 ML IV SCH ×3 (03:02→16:29)
[2017-07-30] MEDS: cefepime 1GM/NS ADD-VANTAGE 100 ML IV SCH ×3 (03:03→16:29)
[2017-07-30] MEDS: metoclopramide 10mg/10 ml UD oral solution PO SCH ×4 (03:03→19:55)
[2017-07-30 03:06] LABS: ABG BASE EXCESS -11.8 mmol/L (-2.0-3.0); ABG HCO3 12.5 mmol/L (22.0-26.0); ABG OXYGEN SATURATION 94.3 % (95-98); ABG PCO2 (T) 23.3 mmHg (35.0-48.0); ABG PH (T) 7.345 (7.350-7.450); ABG PO2 (T) 73.3 mmHg (83-108); ALLEN'S TEST Positive; FCOHb 0.3 % (0.5-1.5); FLOW 6 L/min; FMetHb 0.3 % (0.3-1.12); FO2Hb 93.7 % (94-100); PATIENT TEMPERATURE 36.3; RESPIRATORY RATE (OBSERVED) 22 b/min
[2017-07-30] MEDS: ipratropium/albuterol 3ml nebule NEB SCH ×6 (03:09→23:16)
[2017-07-30] MEDS: FENTANYL-0.9 % NACL/PF 100 ML IV PRN ×3 (03:37→23:15)
[2017-07-30] MEDS ORDERED: albumin (human) 25% 100 ML IV solution IV ONE (04:25)
[2017-07-30] MEDS ORDERED: furosemide 40mg/4ml inj IV ONE (04:25)
[2017-07-30] MEDS: normal saline 1000ml 1,000 ML IV SCH ×3 (05:26→16:30)
[2017-07-30 05:43] LABS: BASOPHILS # (AUTO) 0.1 X10'3 (0-0.2); BASOPHILS % (AUTO) 0.5 % (0-1); EOSINOPHILS # (AUTO) 0.4 X10'3 (0-0.9); EOSINOPHILS % (AUTO) 2.9 % (0-6); HEMATOCRIT 28.2 % (42.0-52.0); HEMOGLOBIN 9.4 g/dl (14.0-17.9); LYMPHOCYTES # (AUTO) 1.5 X10'3 (1.1-4.8); MEAN CORPUSCULAR HEMOGLOBIN 32.6 PG (27.0-31.0); MEAN CORPUSCULAR HGB CONC 33.3 % (33.0-36.5); MEAN CORPUSCULAR VOLUME 97.9 FL (78-98); MEAN PLATELET VOLUME 10.7 FL (7.4-10.4); MONOCYTES % (AUTO) 7.1 % (2-12); NEUTROPHILS # (AUTO) 11.6 X10'3 (1.8-7.7); NEUTROPHILS % (AUTO) 79.5 % (42-75); PLATELET COUNT 183 X10'3 (140-440); RED BLOOD COUNT 2.89 X10'6 (4.70-6.10); RED CELL DISTRIBUTION WIDTH 25.6 % (11.5-14.5); WHITE BLOOD COUNT 14.5 X10'3 (4.5-11.0)
[2017-07-30 06:15] LABS: ALANINE AMINOTRANSFERASE 33 U/L (12-78); ALKALINE PHOSPHATASE 90 IU/L (46-116); ANION GAP 12 (8-16); ASPARTATE AMINO TRANSFERASE 84 U/L (10-37); BILIRUBIN,TOTAL 6.9 MG/DL (0.1-1.0); BLOOD UREA NITROGEN 72 MG/DL (7-18); CALCIUM 7.8 MG/DL (8.5-10.1); CHLORIDE 121 MMOL/L (99-107); MAGNESIUM 1.6 MG/DL (1.5-2.4); SODIUM 148 MMOL/L (135-145); TOTAL CARBON DIOXIDE 15.1 MMOL/L (24-32); eGFR 35 ML/MIN
[2017-07-30 06:24] LABS: ALBUMIN/GLOBULIN RATIO 0.2 (1.1-1.5); GLUCOSE 131 MG/DL (70-104); PHOSPHORUS 5.6 MG/DL (2.3-4.5); POTASSIUM 3.8 MMOL/L (3.5-5.1); TOTAL PROTEIN 7.3 G/DL (6.4-8.2)
[2017-07-30 07:47] LABS: ANISOCYTOSIS 3+; PLATELET ESTIMATE NORMAL; TOTAL CELLS COUNTED 100
[2017-07-30 07:48] LABS: BURR CELLS 1+; HYPOCHROMASIA 1+; POLYCHROMASIA 2+; ROULEAUX 1+; TARGET CELLS 1+; TOXIC GRANULATION 1+
[2017-07-30] MEDS: nystatin 500,000 unit/5ML UD oral suspension PO SCH ×3 (08:03→16:29)
[2017-07-30] MEDS: multivitamins, therapeutics tablet PO SCH (08:04)
[2017-07-30] MEDS: lactobacillus rhamnosus 10,000 MMU CELLS/CAPSULE PO SCH ×2 (08:04→19:55)
[2017-07-30] MEDS: docusate sodium 100mg/10ml UD cup PO SCH ×2 (08:04→19:55)
[2017-07-30] MEDS: thiamine 100mg tablet PO SCH (08:04)
[2017-07-30] MEDS: folic acid 1mg tablet PO SCH (08:04)
[2017-07-30] MEDS: famotidine/PF 10 mg/ml inj IV SCH ×2 (08:05→19:56)
[2017-07-30] MEDS: fluconazole-Diflucan 200mg/NS 100 ML IV SCH (08:05)
[2017-07-30] MEDS: heparin, porcine 5000 units/ml vial SQ SCH ×2 (08:06→19:56)
[2017-07-30] MEDS: methylnaltrexone br 12mg/0.6ml inj***SubQ only SQ SCH (08:06)
[2017-07-30] MEDS ORDERED: VANCOMYCIN LEVEL IV NR (08:30)
[2017-07-30] MEDS: insulin regular, human vial - multi-dose SQ SCH (20:35)
[2017-07-30] MEDS: insulin glargine (Lantus) pen - multi-dose SQ SCH (20:35)
[2017-07-31] VITALS (24 sets, daily range): BP systolic 95–148; BP diastolic 57–78
[2017-07-31] MEDS: nystatin 500,000 unit/5ML UD oral suspension PO SCH ×3 (00:32→16:24)
[2017-07-31] MEDS: cefepime 1GM/NS ADD-VANTAGE 100 ML IV SCH ×3 (00:32→14:50)
[2017-07-31] MEDS: metroNIDAZOLE-Flagyl 500mg/NS 100 ML IV SCH ×3 (00:32→14:50)
[2017-07-31] MEDS: metoclopramide 5 mg/ml inj IV SCH ×3 (02:00→14:00)
[2017-07-31] MEDS: mineral oil/petrolatum ophthal oint EACHEYE SCH ×4 (02:18→19:58)
[2017-07-31] MEDS: normal saline 1000ml 1,000 ML IV SCH ×3 (02:18→12:01)
[2017-07-31] MEDS: metoclopramide 10mg/10 ml UD oral solution PO SCH ×2 (02:18→07:58)
[2017-07-31] MEDS: ipratropium/albuterol 3ml nebule NEB SCH ×6 (03:00→23:53)
[2017-07-31 05:00] LABS: ABG BASE EXCESS -11.1 mmol/L (-2.0-3.0); ABG HCO3 13.4 mmol/L (22.0-26.0); ABG OXYGEN SATURATION 96.6 % (95-98); ABG PCO2 (T) 24.9 mmHg (35.0-48.0); ABG PH (T) 7.344 (7.350-7.450); ABG PO2 (T) 89.2 mmHg (83-108); ALLEN'S TEST Positive; FCOHb 0.3 % (0.5-1.5); FMetHb 0.3 % (0.3-1.12); MINUTE VOLUME 12 L/min; PATIENT TEMPERATURE 36.2; PEEP 5 cm H2O; RESPIRATORY RATE (OBSERVED) 20 b/min; TIDAL VOLUME 659 mL; TOTAL HEMOGLOBIN 9.5 G/dl (14.0-18.0)
[2017-07-31 05:36] LABS: EOSINOPHILS # (AUTO) 0.4 X10'3 (0-0.9); HEMOGLOBIN 9.3 g/dl (14.0-17.9); LYMPHOCYTES # (AUTO) 1.9 X10'3 (1.1-4.8); MEAN CORPUSCULAR HEMOGLOBIN 32.3 PG (27.0-31.0)
[2017-07-31 05:45] LABS: ALANINE AMINOTRANSFERASE 34 U/L (12-78); ALBUMIN 1.4 G/DL (3.4-5.0); ALKALINE PHOSPHATASE 80 IU/L (46-116); ANION GAP 13 (8-16); ASPARTATE AMINO TRANSFERASE 86 U/L (10-37); BILIRUBIN,TOTAL 7.2 MG/DL (0.1-1.0); BLOOD UREA NITROGEN 63 MG/DL (7-18); BUN/CREATININE RATIO 39.4 (5.4-32.0); CALCIUM 8.1 MG/DL (8.5-10.1); CHLORIDE 122 MMOL/L (99-107); MAGNESIUM 1.5 MG/DL (1.5-2.4); PREALBUMIN 6.9 MG/DL (19-36); SODIUM 151 MMOL/L (135-145); TOTAL CARBON DIOXIDE 16.4 MMOL/L (24-32); eGFR 45 ML/MIN
[2017-07-31 05:56] LABS: BASOPHILS % (AUTO) 0.3 % (0-1); EOSINOPHILS % (AUTO) 2.7 % (0-6); HEMATOCRIT 28.1 % (42.0-52.0); LYMPHOCYTES % (AUTO) 14.2 % (21-51); MEAN CORPUSCULAR HGB CONC 33.2 % (33.0-36.5); MEAN CORPUSCULAR VOLUME 97.3 FL (78-98); MEAN PLATELET VOLUME 9.8 FL (7.4-10.4); MONOCYTES # (AUTO) 1.1 X10'3 (0-0.9); MONOCYTES % (AUTO) 8.4 % (2-12); NEUTROPHILS # (AUTO) 10.1 X10'3 (1.8-7.7); NEUTROPHILS % (AUTO) 74.4 % (42-75); PLATELET COUNT 169 X10'3 (140-440); RED BLOOD COUNT 2.89 X10'6 (4.70-6.10); RED CELL DISTRIBUTION WIDTH 25.3 % (11.5-14.5); WHITE BLOOD COUNT 13.6 X10'3 (4.5-11.0)
[2017-07-31 05:58] LABS: ALBUMIN/GLOBULIN RATIO 0.3 (1.1-1.5); GLUCOSE 127 MG/DL (70-104); PHOSPHORUS 4.9 MG/DL (2.3-4.5); POTASSIUM 3.5 MMOL/L (3.5-5.1); TOTAL PROTEIN 6.8 G/DL (6.4-8.2)
[2017-07-31] MEDS: folic acid 1mg tablet PO SCH (07:58)
[2017-07-31] MEDS: docusate sodium 100mg/10ml UD cup PO SCH ×2 (07:58→19:59)
[2017-07-31] MEDS: lactobacillus rhamnosus 10,000 MMU CELLS/CAPSULE PO SCH ×2 (07:58→19:59)
[2017-07-31] MEDS: thiamine 100mg tablet PO SCH (07:58)
[2017-07-31] MEDS: multivitamins, therapeutics tablet PO SCH (07:58)
[2017-07-31] MEDS: famotidine/PF 10 mg/ml inj IV SCH ×2 (07:58→20:00)
[2017-07-31] MEDS: heparin, porcine 5000 units/ml vial SQ SCH ×2 (07:59→20:00)
[2017-07-31] MEDS: fluconazole-Diflucan 200mg/NS 100 ML IV SCH (08:00)
[2017-07-31] MEDS: FENTANYL-0.9 % NACL/PF 100 ML IV PRN (09:22)
[2017-07-31] MEDS: sodium chloride 0.45% 1,000 ML IV SCH ×2 (12:11→17:21)
[2017-07-31] MEDS: metoclopramide 10mg/10 ml UD oral solution NG SCH (19:59)
[2017-07-31] MEDS: insulin regular, human vial - multi-dose SQ SCH (21:15)
[2017-07-31] MEDS: insulin glargine (Lantus) pen - multi-dose SQ SCH (21:16)
[2017-08-01] VITALS (24 sets, daily range): BP systolic 111–162; BP diastolic 62–90
[2017-08-01] MEDS: sodium chloride 0.45% 1,000 ML IV SCH ×2 (00:40→08:42)
[2017-08-01] MEDS: cefepime 1GM/NS ADD-VANTAGE 100 ML IV SCH ×3 (00:40→15:41)
[2017-08-01] MEDS: metroNIDAZOLE-Flagyl 500mg/NS 100 ML IV SCH ×3 (00:40→16:29)
[2017-08-01] MEDS: mineral oil/petrolatum ophthal oint EACHEYE SCH ×4 (02:44→20:28)
[2017-08-01] MEDS: metoclopramide 10mg/10 ml UD oral solution NG SCH ×4 (02:44→20:22)
[2017-08-01] MEDS: FENTANYL-0.9 % NACL/PF 100 ML IV PRN ×2 (03:41→15:30)
[2017-08-01 03:51] LABS: ABG BASE EXCESS -11.2 mmol/L (-2.0-3.0); ABG HCO3 13.3 mmol/L (22.0-26.0); ABG OXYGEN SATURATION 96.3 % (95-98); ABG PH (T) 7.341 (7.350-7.450); ABG PO2 (T) 86.1 mmHg (83-108); ALLEN'S TEST Positive; FCOHb 0.3 % (0.5-1.5); FMetHb 0.3 % (0.3-1.12); FO2Hb 95.7 % (94-100); MINUTE VOLUME 13 L/min; PATIENT TEMPERATURE 36.5; PEEP 5 cm H2O; TIDAL VOLUME 785 mL; TOTAL HEMOGLOBIN 9.3 G/dl (14.0-18.0)
[2017-08-01] MEDS: ipratropium/albuterol 3ml nebule NEB SCH ×6 (03:52→23:21)
[2017-08-01 05:15] LABS: BASOPHILS # (AUTO) 0.1 X10'3 (0-0.2); BASOPHILS % (AUTO) 0.5 % (0-1); EOSINOPHILS # (AUTO) 0.4 X10'3 (0-0.9); EOSINOPHILS % (AUTO) 2.7 % (0-6); HEMATOCRIT 27.4 % (42.0-52.0); HEMOGLOBIN 9.1 g/dl (14.0-17.9); LYMPHOCYTES # (AUTO) 2.5 X10'3 (1.1-4.8); LYMPHOCYTES % (AUTO) 15.4 % (21-51); MEAN CORPUSCULAR HEMOGLOBIN 32.4 PG (27.0-31.0); MEAN CORPUSCULAR HGB CONC 33.4 % (33.0-36.5); MEAN PLATELET VOLUME 9.7 FL (7.4-10.4); MONOCYTES # (AUTO) 1.4 X10'3 (0-0.9); MONOCYTES % (AUTO) 8.6 % (2-12); NEUTROPHILS % (AUTO) 72.8 % (42-75); PLATELET COUNT 200 X10'3 (140-440); RED BLOOD COUNT 2.83 X10'6 (4.70-6.10); RED CELL DISTRIBUTION WIDTH 26.1 % (11.5-14.5); WHITE BLOOD COUNT 16.4 X10'3 (4.5-11.0)
[2017-08-01 05:48] LABS: ALANINE AMINOTRANSFERASE 49 U/L (12-78); ALBUMIN 1.2 G/DL (3.4-5.0); ALKALINE PHOSPHATASE 89 IU/L (46-116); ANION GAP 13 (8-16); ASPARTATE AMINO TRANSFERASE 96 U/L (10-37); BILIRUBIN,TOTAL 6.7 MG/DL (0.1-1.0); BLOOD UREA NITROGEN 56 MG/DL (7-18); BUN/CREATININE RATIO 32.9 (5.4-32.0); CALCIUM 7.7 MG/DL (8.5-10.1); CHLORIDE 121 MMOL/L (99-107); MAGNESIUM 1.4 MG/DL (1.5-2.4); SODIUM 149 MMOL/L (135-145); TOTAL CARBON DIOXIDE 15.1 MMOL/L (24-32); eGFR 42 ML/MIN
[2017-08-01 05:56] LABS: ALBUMIN/GLOBULIN RATIO 0.2 (1.1-1.5); GLUCOSE 146 MG/DL (70-104); PHOSPHORUS 4.3 MG/DL (2.3-4.5); POTASSIUM 3.3 MMOL/L (3.5-5.1); TOTAL PROTEIN 7.2 G/DL (6.4-8.2)
[2017-08-01] MEDS: fluconazole-Diflucan 200mg/NS 100 ML IV SCH (07:47)
[2017-08-01] MEDS: thiamine 100mg tablet PO SCH (07:48)
[2017-08-01] MEDS: nystatin 500,000 unit/5ML UD oral suspension PO SCH ×3 (07:48→15:45)
[2017-08-01] MEDS: folic acid 1mg tablet PO SCH (07:48)
[2017-08-01] MEDS: famotidine/PF 10 mg/ml inj IV SCH ×2 (07:48→20:31)
[2017-08-01] MEDS: docusate sodium 100mg/10ml UD cup PO SCH ×2 (07:48→20:22)
[2017-08-01] MEDS: lactobacillus rhamnosus 10,000 MMU CELLS/CAPSULE PO SCH ×2 (07:48→20:23)
[2017-08-01] MEDS: multivitamins, therapeutics tablet PO SCH (07:48)
[2017-08-01] MEDS: heparin, porcine 5000 units/ml vial SQ SCH ×2 (07:49→20:27)
[2017-08-01] MEDS: methylnaltrexone br 12mg/0.6ml inj***SubQ only SQ SCH (07:50)
[2017-08-01] MEDS: potassium Cl oral solution 20 MEQ/15 ML PO PRN ×3 (08:00→16:29)
[2017-08-01] MEDS: insulin regular, human vial - multi-dose SQ SCH ×3 (08:49→20:30)
[2017-08-01] MEDS: sodium bicarbonate (8.4%) inj. 100 MEQ in dextrose 5%-water 1,000 ML IV SCH ×3 (12:15→22:10)
[2017-08-01] MEDS: insulin glargine (Lantus) pen - multi-dose SQ SCH (20:31)
[2017-08-02] VITALS (24 sets, daily range): BP systolic 101–194; BP diastolic 55–97
[2017-08-02] MEDS: nystatin 500,000 unit/5ML UD oral suspension PO SCH ×4 (00:25→23:54)
[2017-08-02] MEDS: cefepime 1GM/NS ADD-VANTAGE 100 ML IV SCH ×3 (00:26→17:29)
[2017-08-02] MEDS: metroNIDAZOLE-Flagyl 500mg/NS 100 ML IV SCH ×4 (00:26→23:55)
[2017-08-02] MEDS: mineral oil/petrolatum ophthal oint EACHEYE SCH ×4 (02:24→19:23)
[2017-08-02] MEDS: metoclopramide 10mg/10 ml UD oral solution NG SCH ×4 (02:24→19:21)
[2017-08-02 02:31] LABS: ABG BASE EXCESS -11.8 mmol/L (-2.0-3.0); ABG HCO3 11.2 mmol/L (22.0-26.0); ABG OXYGEN SATURATION 94.2 % (95-98); ABG PCO2 (T) 20.2 mmHg (35.0-48.0); ABG PH (T) 7.366 (7.350-7.450); ABG PO2 (T) 72.5 mmHg (83-108); ALLEN'S TEST Positive; FCOHb 0.6 % (0.5-1.5); FMetHb 0.3 % (0.3-1.12); FO2Hb 93.4 % (94-100); MINUTE VOLUME 13 L/min; PATIENT TEMPERATURE 37.3; PEEP 5 cm H2O; RESPIRATORY RATE (OBSERVED) 16 b/min; TIDAL VOLUME 840 mL; TOTAL HEMOGLOBIN 12.8 G/dl (14.0-18.0)
[2017-08-02] MEDS: insulin regular, human vial - multi-dose SQ SCH ×2 (02:44→10:05)
[2017-08-02] MEDS: ipratropium/albuterol 3ml nebule NEB SCH ×6 (03:02→23:03)
[2017-08-02] MEDS: sodium bicarbonate (8.4%) inj. 100 MEQ in dextrose 5%-water 1,000 ML IV SCH ×2 (06:39→17:28)
[2017-08-02] MEDS: docusate sodium 100mg/10ml UD cup PO SCH ×2 (08:00→19:23)
[2017-08-02 08:50] LABS: BASOPHILS # (AUTO) 0.1 X10'3 (0-0.2); BASOPHILS % (AUTO) 0.3 % (0-1); EOSINOPHILS # (AUTO) 0.2 X10'3 (0-0.9); EOSINOPHILS % (AUTO) 0.8 % (0-6); HEMOGLOBIN 9.8 g/dl (14.0-17.9); LYMPHOCYTES # (AUTO) 3.7 X10'3 (1.1-4.8); LYMPHOCYTES % (AUTO) 16.5 % (21-51); MEAN CORPUSCULAR HEMOGLOBIN 33.2 PG (27.0-31.0); MEAN CORPUSCULAR HGB CONC 33.8 % (33.0-36.5); MEAN CORPUSCULAR VOLUME 98.1 FL (78-98); MEAN PLATELET VOLUME 9.9 FL (7.4-10.4); MONOCYTES # (AUTO) 1.8 X10'3 (0-0.9); MONOCYTES % (AUTO) 7.9 % (2-12); NEUTROPHILS # (AUTO) 16.7 X10'3 (1.8-7.7); NEUTROPHILS % (AUTO) 74.5 % (42-75); PLATELET COUNT 215 X10'3 (140-440); RED BLOOD COUNT 2.96 X10'6 (4.70-6.10); RED CELL DISTRIBUTION WIDTH 24.9 % (11.5-14.5); WHITE BLOOD COUNT 22.4 X10'3 (4.5-11.0)
[2017-08-02] MEDS: fluconazole-Diflucan 200mg/NS 100 ML IV SCH (09:30)
[2017-08-02] MEDS: multivitamins, therapeutics tablet PO SCH (09:31)
[2017-08-02] MEDS: famotidine/PF 10 mg/ml inj IV SCH ×2 (09:31→19:22)
[2017-08-02] MEDS: lactobacillus rhamnosus 10,000 MMU CELLS/CAPSULE PO SCH ×2 (09:31→19:20)
[2017-08-02] MEDS: folic acid 1mg tablet PO SCH (09:31)
[2017-08-02] MEDS: thiamine 100mg tablet PO SCH (09:31)
[2017-08-02] MEDS: heparin, porcine 5000 units/ml vial SQ SCH ×2 (09:32→19:22)
[2017-08-02 09:37] LABS: ALANINE AMINOTRANSFERASE 61 U/L (12-78); ALBUMIN 1.2 G/DL (3.4-5.0); ALKALINE PHOSPHATASE 101 IU/L (46-116); ANION GAP 11 (8-16); ASPARTATE AMINO TRANSFERASE 121 U/L (10-37); BILIRUBIN,TOTAL 6.7 MG/DL (0.1-1.0); BLOOD UREA NITROGEN 54 MG/DL (7-18); BUN/CREATININE RATIO 30.5 (5.4-32.0); CALCIUM 8.2 MG/DL (8.5-10.1); CHLORIDE 116 MMOL/L (99-107); CREATININE 1.77 MG/DL (0.60-1.10); MAGNESIUM 1.7 MG/DL (1.5-2.4); SODIUM 145 MMOL/L (135-145); TOTAL CARBON DIOXIDE 18.3 MMOL/L (24-32); eGFR 40 ML/MIN
[2017-08-02 09:39] LABS: ALBUMIN/GLOBULIN RATIO 0.2 (1.1-1.5); GLUCOSE 178 MG/DL (70-104); PHOSPHORUS 4.6 MG/DL (2.3-4.5); TOTAL PROTEIN 8.1 G/DL (6.4-8.2)
[2017-08-02 10:11] LABS: ANISOCYTOSIS 3+; PLATELET ESTIMATE NORMAL; TOTAL CELLS COUNTED 100
[2017-08-02 10:13] LABS: BURR CELLS FEW; SCHISTOCYTES FEW; TOXIC VACUOLATION 1+
[2017-08-02] MEDS: FENTANYL-0.9 % NACL/PF 100 ML IV PRN ×2 (14:46→21:39)
[2017-08-02] MEDS: midazolam 100mg in NS 100ml 100 ML IV PRN (20:16)
[2017-08-02] MEDS: insulin glargine (Lantus) pen - multi-dose SQ SCH (21:24)
[2017-08-02 21:26] LABS: ABG BASE EXCESS -10.6 mmol/L (-2.0-3.0); ABG HCO3 17.3 mmol/L (22.0-26.0); ABG OXYGEN SATURATION 95.3 % (95-98); ABG PCO2 (T) 48.1 mmHg (35.0-48.0); ABG PH (T) 7.175 (7.350-7.450); ABG PO2 (T) 94.4 mmHg (83-108); ALLEN'S TEST Positive; FCOHb 0.2 % (0.5-1.5); FMetHb 0.3 % (0.3-1.12); FO2Hb 94.8 % (94-100); PEEP 5 cm H2O; RESPIRATORY RATE 16 b/min; RESPIRATORY RATE (OBSERVED) 16 b/min; TOTAL HEMOGLOBIN 9.5 G/dl (14.0-18.0)
[2017-08-02] MEDS ORDERED: sodium bicarbonate (8.4%) 1 mEq/ml syringe ONE (21:56)
[2017-08-03] VITALS (24 sets, daily range): BP systolic 87–125; BP diastolic 44–68
[2017-08-03] MEDS: cefepime 1GM/NS ADD-VANTAGE 100 ML IV SCH ×3 (01:15→16:23)
[2017-08-03] MEDS: metoclopramide 10mg/10 ml UD oral solution NG SCH ×4 (02:30→20:24)
[2017-08-03] MEDS: mineral oil/petrolatum ophthal oint EACHEYE SCH ×4 (02:31→20:24)
[2017-08-03] MEDS: ipratropium/albuterol 3ml nebule NEB SCH ×6 (02:49→23:20)
[2017-08-03 03:16] LABS: ABG BASE EXCESS -9.2 mmol/L (-2.0-3.0); ABG HCO3 18.4 mmol/L (22.0-26.0); ABG OXYGEN SATURATION 97.9 % (95-98); ABG PCO2 (T) 47.4 mmHg (35.0-48.0); ABG PH (T) 7.206 (7.350-7.450); ABG PO2 (T) 115.8 mmHg (83-108); ALLEN'S TEST Positive; FCOHb 0.4 % (0.5-1.5); FMetHb 0.2 % (0.3-1.12); FO2Hb 97.3 % (94-100); PATIENT TEMPERATURE 36.8; PEEP 5 cm H2O; RESPIRATORY RATE 20 b/min; RESPIRATORY RATE (OBSERVED) 25 b/min; TOTAL HEMOGLOBIN 9.2 G/dl (14.0-18.0)
[2017-08-03 03:16] LABS: BASOPHILS # (AUTO) 0.1 X10'3 (0-0.2); BASOPHILS % (AUTO) 0.5 % (0-1); EOSINOPHILS # (AUTO) 0.2 X10'3 (0-0.9); EOSINOPHILS % (AUTO) 0.8 % (0-6); HEMATOCRIT 24.8 % (42.0-52.0); HEMOGLOBIN 8.5 g/dl (14.0-17.9); LYMPHOCYTES # (AUTO) 2.5 X10'3 (1.1-4.8); LYMPHOCYTES % (AUTO) 12.7 % (21-51); MEAN CORPUSCULAR HEMOGLOBIN 33.7 PG (27.0-31.0); MEAN CORPUSCULAR HGB CONC 34.2 % (33.0-36.5); MEAN CORPUSCULAR VOLUME 98.5 FL (78-98); MEAN PLATELET VOLUME 9.4 FL (7.4-10.4); MONOCYTES # (AUTO) 1.9 X10'3 (0-0.9); MONOCYTES % (AUTO) 9.6 % (2-12); NEUTROPHILS # (AUTO) 14.8 X10'3 (1.8-7.7); NEUTROPHILS % (AUTO) 76.4 % (42-75); PLATELET COUNT 176 X10'3 (140-440); RED BLOOD COUNT 2.52 X10'6 (4.70-6.10); RED CELL DISTRIBUTION WIDTH 23.6 % (11.5-14.5); WHITE BLOOD COUNT 19.5 X10'3 (4.5-11.0)
[2017-08-03 03:37] LABS: ALANINE AMINOTRANSFERASE 65 U/L (12-78); ALBUMIN/GLOBULIN RATIO 0.2 (1.1-1.5); ALKALINE PHOSPHATASE 83 IU/L (46-116); ANION GAP 10 (8-16); ASPARTATE AMINO TRANSFERASE 124 U/L (10-37); BILIRUBIN,TOTAL 5.9 MG/DL (0.1-1.0); BLOOD UREA NITROGEN 63 MG/DL (7-18); BUN/CREATININE RATIO 25.9 (5.4-32.0); CALCIUM 7.7 MG/DL (8.5-10.1); CHLORIDE 115 MMOL/L (99-107); CREATININE 2.43 MG/DL (0.60-1.10); GLUCOSE 147 MG/DL (70-104); MAGNESIUM 1.7 MG/DL (1.5-2.4); PHOSPHORUS 6.7 MG/DL (2.3-4.5); POTASSIUM 4.1 MMOL/L (3.5-5.1); SODIUM 146 MMOL/L (135-145); TOTAL CARBON DIOXIDE 20.6 MMOL/L (24-32); TOTAL PROTEIN 7.1 G/DL (6.4-8.2); eGFR 28 ML/MIN
[2017-08-03] MEDS: sodium bicarbonate (8.4%) inj. 100 MEQ in dextrose 5%-water 1,000 ML IV SCH ×3 (04:01→14:48)
[2017-08-03 05:39] LABS: ANISOCYTOSIS 3+; BANDS% (MANUAL) 2 % (0-10); BASOPHILS % (MANUAL) 1 % (0-1); EOSINOPHILS % (MANUAL) 1 % (0-6); LYMPHOCYTES % (MANUAL) 8 % (21-51); MONOCYTES % (MANUAL) 6 % (2-12); NEUTROPHILS % (MANUAL) 82 % (42-75); PLATELET ESTIMATE NORMAL; TOTAL CELLS COUNTED 100
[2017-08-03] MEDS: famotidine/PF 10 mg/ml inj IV SCH ×2 (07:57→20:23)
[2017-08-03] MEDS: heparin, porcine 5000 units/ml vial SQ SCH ×2 (07:57→20:24)
[2017-08-03] MEDS: methylnaltrexone br 12mg/0.6ml inj***SubQ only SQ SCH (07:58)
[2017-08-03] MEDS: lactobacillus rhamnosus 10,000 MMU CELLS/CAPSULE PO SCH ×2 (07:58→20:23)
[2017-08-03] MEDS: multivitamins, therapeutics tablet PO SCH (07:58)
[2017-08-03] MEDS: thiamine 100mg tablet PO SCH (07:58)
[2017-08-03] MEDS: nystatin 500,000 unit/5ML UD oral suspension PO SCH (07:58)
[2017-08-03] MEDS: docusate sodium 100mg/10ml UD cup PO SCH ×2 (07:58→20:24)
[2017-08-03] MEDS: metroNIDAZOLE-Flagyl 500mg/NS 100 ML IV SCH ×2 (07:59→16:23)
[2017-08-03] MEDS: FENTANYL-0.9 % NACL/PF 100 ML IV PRN ×3 (08:00→22:09)
[2017-08-03] MEDS: fluconazole-Diflucan 200mg/NS 100 ML IV SCH (08:00)
[2017-08-03] MEDS: folic acid 1mg tablet PO SCH (08:01)
[2017-08-03] MEDS: midazolam 100mg in NS 100ml 100 ML IV PRN ×2 (09:57→19:43)
[2017-08-03 10:42] LABS: CLARITY,URINE CLOUDY (Clear); COLOR,URINE AMBER (Yellow); GLUCOSE, URINE 100 mg/dl (Neg); KETONES,URINE TRACE mg/dl (Neg); LEUKOCYTE ESTERASE ,URINE TRACE (Neg); OCCULT BLOOD,URINE LARGE (Neg); PROTEIN,URINE 100 mg/dl (Neg)
[2017-08-03 10:43] LABS: UA COLLECTION TYPE NON-SPECIFIED
[2017-08-03 10:44] LABS: NITRITES, URINE UNABLE TO PERFORM (Neg)
[2017-08-03 10:53] LABS: RBC,URINE 20-50 /HPF (0-2); SQUAMOUS EPITHELIAL CELL,UR FEW /LPF (FEW)
[2017-08-03 10:54] LABS: AMORPHOUS URATES 2+
[2017-08-03 10:55] LABS: MUCUS STRANDS FEW /LPF (Neg); TRANSITIONAL EPI CELLS,URINE FEW /HPF
[2017-08-03 10:56] LABS: BACTERIA,URINE 1+ /HPF (Neg)
[2017-08-03 10:58] LABS: RENAL CELLS, URINE FEW /HPF
[2017-08-03] MEDS ORDERED: Dextrose 10%-water IV solution 1,000 ML IV PRN (11:28)
[2017-08-03] MEDS ORDERED: Neutra Phos packet PO PRN (11:30)
[2017-08-03] MEDS ORDERED: sodium phosphate inj. 15 MMOL in dextrose 5%-water 150 ML IV PRN (11:30)
[2017-08-03] MEDS ORDERED: sodium phosphate inj. 30 MMOL in dextrose 5%-water 250 ML IV PRN (11:30)
[2017-08-03] MEDS ORDERED: magnesium 2GM in 50ml NS 50 ML IV PRN (11:30)
[2017-08-03] MEDS ORDERED: magnesium 4gm in 100ml NS 100 ML IV PRN (11:30)
[2017-08-03] MEDS ORDERED: magnesium Cl slow-release 64mg tablet PO PRN (11:30)
[2017-08-03] MEDS ORDERED: [UNRECOGNIZED DRUG - REMARK] IV SCH ×3 (11:43)
[2017-08-03 11:47] LABS: UA EOSINOPHILS NO EOS /HPF
[2017-08-03] MEDS ORDERED: normal saline 1000ml 1,000 ML IV ONE (13:20)
[2017-08-03 14:32] LABS: PREALBUMIN 6.8 MG/DL (19-36)
[2017-08-03] MEDS ORDERED: NORepinephrine 8mg/ 250ml NS 250 ML IV ONE (14:37)
[2017-08-03] MEDS ORDERED: [UNRECOGNIZED DRUG - REMARK] IV SCH ×5 (16:40)
[2017-08-03 16:45] LABS: ABG BASE EXCESS -7.9 mmol/L (-2.0-3.0); ABG OXYGEN SATURATION 96.7 % (95-98); ABG PCO2 (T) 44.9 mmHg (35.0-48.0); ABG PH (T) 7.243 (7.350-7.450); ABG PO2 (T) 90.9 mmHg (83-108); ALLEN'S TEST Positive; FCOHb 0.2 % (0.5-1.5); FMetHb 0.1 % (0.3-1.12); FO2Hb 96.4 % (94-100); MINUTE VOLUME 9 L/min; PATIENT TEMPERATURE 36.7; PEEP 5 cm H2O; RESPIRATORY RATE 28 b/min; RESPIRATORY RATE (OBSERVED) 28 b/min; TOTAL HEMOGLOBIN 8.9 G/dl (14.0-18.0)
[2017-08-03] MEDS: insulin regular, human vial - multi-dose SQ SCH (20:30)
[2017-08-03] MEDS: insulin glargine (Lantus) pen - multi-dose SQ SCH (20:31)
[2017-08-03] MEDS: [UNRECOGNIZED DRUG - REMARK] IV SCH ×5 (23:55)
[2017-08-04] VITALS (24 sets, daily range): BP systolic 78–153; BP diastolic 48–76
[2017-08-04] MEDS ORDERED: CISatracurium **Bolus** 2 mg/ml inj IV ONE (01:40)
[2017-08-04] MEDS: metroNIDAZOLE-Flagyl 500mg/NS 100 ML IV SCH (01:53)
[2017-08-04] MEDS: cefepime 1GM/NS ADD-VANTAGE 100 ML IV SCH (02:01)
[2017-08-04] MEDS: mineral oil/petrolatum ophthal oint EACHEYE SCH ×4 (02:03→20:20)
[2017-08-04] MEDS: metoclopramide 10mg/10 ml UD oral solution NG SCH ×4 (02:03→20:17)
[2017-08-04 02:20] LABS: ALANINE AMINOTRANSFERASE 76 U/L (12-78); ALBUMIN 1.1 G/DL (3.4-5.0); ALKALINE PHOSPHATASE 98 IU/L (46-116); ANION GAP 10 (8-16); CALCIUM 7.4 MG/DL (8.5-10.1); CHLORIDE 110 MMOL/L (99-107); CREATININE 3.29 MG/DL (0.60-1.10); MAGNESIUM 1.8 MG/DL (1.5-2.4); POTASSIUM 4.2 MMOL/L (3.5-5.1); SODIUM 144 MMOL/L (135-145); TOTAL CARBON DIOXIDE 24.5 MMOL/L (24-32); eGFR 20 ML/MIN
[2017-08-04 02:21] LABS: ALBUMIN/GLOBULIN RATIO 0.2 (1.1-1.5); ASPARTATE AMINO TRANSFERASE 133 U/L (10-37); BILIRUBIN,TOTAL 6.5 MG/DL (0.1-1.0); BLOOD UREA NITROGEN 68 MG/DL (7-18); BUN/CREATININE RATIO 20.7 (5.4-32.0); GLUCOSE 169 MG/DL (70-104); PHOSPHORUS 7.9 MG/DL (2.3-4.5); TOTAL PROTEIN 8.1 G/DL (6.4-8.2)
[2017-08-04 02:26] LABS: ABG BASE EXCESS -12.1 mmol/L (-2.0-3.0); ABG HCO3 20.9 mmol/L (22.0-26.0); ABG OXYGEN SATURATION 95.5 % (95-98); ABG PCO2 (T) 97.1 mmHg (35.0-48.0); ABG PH (T) 6.951 (7.350-7.450); ALLEN'S TEST Positive; FCOHb 0.1 % (0.5-1.5); FMetHb 0.3 % (0.3-1.12); FO2Hb 95.1 % (94-100); MINUTE VOLUME 5 L/min; PEEP 5 cm H2O; RESPIRATORY RATE 12 b/min; RESPIRATORY RATE (OBSERVED) 12 b/min; TOTAL HEMOGLOBIN 10.6 G/dl (14.0-18.0)
[2017-08-04 02:27] LABS: BASOPHILS # (AUTO) 0.2 X10'3 (0-0.2); BASOPHILS % (AUTO) 0.6 % (0-1); EOSINOPHILS # (AUTO) 0.8 X10'3 (0-0.9); EOSINOPHILS % (AUTO) 2.9 % (0-6); HEMATOCRIT 28.4 % (42.0-52.0); HEMOGLOBIN 9.4 g/dl (14.0-17.9); LYMPHOCYTES # (AUTO) 4.4 X10'3 (1.1-4.8); LYMPHOCYTES % (AUTO) 16.8 % (21-51); MEAN CORPUSCULAR HEMOGLOBIN 33.4 PG (27.0-31.0); MEAN CORPUSCULAR HGB CONC 33.2 % (33.0-36.5); MEAN CORPUSCULAR VOLUME 100.5 FL (78-98); MEAN PLATELET VOLUME 9.4 FL (7.4-10.4); MONOCYTES # (AUTO) 2.4 X10'3 (0-0.9); MONOCYTES % (AUTO) 9.1 % (2-12); NEUTROPHILS # (AUTO) 18.5 X10'3 (1.8-7.7); NEUTROPHILS % (AUTO) 70.6 % (42-75); PLATELET COUNT 196 X10'3 (140-440); RED BLOOD COUNT 2.83 X10'6 (4.70-6.10)
[2017-08-04] MEDS: insulin regular, human vial - multi-dose SQ SCH ×4 (02:27→20:30)
[2017-08-04 02:29] LABS: WHITE BLOOD COUNT 26.3 X10'3 (4.5-11.0)
[2017-08-04] MEDS: ipratropium/albuterol 3ml nebule NEB SCH ×5 (02:29→23:55)
[2017-08-04 02:42] LABS: TOTAL CELLS COUNTED 100
[2017-08-04 02:45] LABS: ANISOCYTOSIS 2+; PLATELET ESTIMATE NORMAL
[2017-08-04 02:46] LABS: ELLIPTOCYTES FEW; HYPOGRANULAR PLATELETS FEW
[2017-08-04] MEDS: midazolam 100mg in NS 100ml 100 ML IV PRN (03:33)
[2017-08-04] MEDS: FENTANYL-0.9 % NACL/PF 100 ML IV PRN ×2 (05:04→22:09)
[2017-08-04 05:16] LABS: ABG BASE EXCESS -9.1 mmol/L (-2.0-3.0); ABG HCO3 18.1 mmol/L (22.0-26.0); ABG OXYGEN SATURATION 95.7 % (95-98); ABG PCO2 (T) 45.3 mmHg (35.0-48.0); ALLEN'S TEST Positive; FCOHb 0.3 % (0.5-1.5); FMetHb 0.1 % (0.3-1.12); FO2Hb 95.3 % (94-100); MINUTE VOLUME 10 L/min; PATIENT TEMPERATURE 37.1; PEEP 5 cm H2O; RESPIRATORY RATE 24 b/min; RESPIRATORY RATE (OBSERVED) 24 b/min; TOTAL HEMOGLOBIN 9.4 G/dl (14.0-18.0)
[2017-08-04] MEDS: NORepinephrine 8mg/ 250ml NS 250 ML IV SCH (06:03)
[2017-08-04 07:57] LABS: C DIFF ANTIGEN NEGATIVE (NEGATIVE); C DIFF SPECIMEN=DIARRHEA? ACCEPTABLE
[2017-08-04 08:01] LABS: C DIFFICILE TOXINS A&B NEGATIVE (Neg)
[2017-08-04] MEDS: fluconazole-Diflucan 200mg/NS 100 ML IV SCH (08:12)
[2017-08-04] MEDS: docusate sodium 100mg/10ml UD cup PO SCH ×2 (08:14→20:17)
[2017-08-04] MEDS: multivitamins, therapeutics tablet PO SCH (08:17)
[2017-08-04] MEDS: lactobacillus rhamnosus 10,000 MMU CELLS/CAPSULE PO SCH ×2 (08:17→20:17)
[2017-08-04] MEDS: heparin, porcine 5000 units/ml vial SQ SCH ×2 (08:23→20:20)
[2017-08-04] MEDS: folic acid 1mg tablet PO SCH (08:24)
[2017-08-04] MEDS: piperacillin-tazo 2.25gm/50ml 50 ML IV SCH ×3 (08:24→20:17)
[2017-08-04] MEDS: linezolid 600mg/300ml PREMIX 300 ML IV SCH ×2 (08:24→21:04)
[2017-08-04] MEDS: famotidine/PF 10 mg/ml inj IV SCH ×2 (08:25→20:20)
[2017-08-04] MEDS: thiamine 100mg tablet PO SCH (08:35)
[2017-08-04] MEDS: [UNRECOGNIZED DRUG - REMARK] IV SCH ×5 (14:34)
[2017-08-04] MEDS: insulin glargine (Lantus) pen - multi-dose SQ SCH (20:29)
[2017-08-05] VITALS (24 sets, daily range): BP systolic 86–123; BP diastolic 49–69
[2017-08-05 00:18] LABS: BASOPHILS # (AUTO) 0.1 X10'3 (0-0.2); BASOPHILS % (AUTO) 0.7 % (0-1); EOSINOPHILS # (AUTO) 0.4 X10'3 (0-0.9); HEMATOCRIT 25.5 % (42.0-52.0); HEMOGLOBIN 8.4 g/dl (14.0-17.9); LYMPHOCYTES # (AUTO) 1.7 X10'3 (1.1-4.8); MEAN CORPUSCULAR HEMOGLOBIN 32.7 PG (27.0-31.0); MEAN CORPUSCULAR HGB CONC 32.9 % (33.0-36.5); MEAN CORPUSCULAR VOLUME 99.5 FL (78-98); MEAN PLATELET VOLUME 9.3 FL (7.4-10.4); MONOCYTES % (AUTO) 5.1 % (2-12); NEUTROPHILS # (AUTO) 15.6 X10'3 (1.8-7.7); NEUTROPHILS % (AUTO) 83.2 % (42-75); PLATELET COUNT 142 X10'3 (140-440); RED BLOOD COUNT 2.56 X10'6 (4.70-6.10); RED CELL DISTRIBUTION WIDTH 25.3 % (11.5-14.5); WHITE BLOOD COUNT 18.8 X10'3 (4.5-11.0)
[2017-08-05 00:32] LABS: ALANINE AMINOTRANSFERASE 69 U/L (12-78); ALBUMIN 0.8 G/DL (3.4-5.0); ALKALINE PHOSPHATASE 85 IU/L (46-116); ASPARTATE AMINO TRANSFERASE 113 U/L (10-37); BILIRUBIN,TOTAL 5.3 MG/DL (0.1-1.0); BLOOD UREA NITROGEN 82 MG/DL (7-18); BUN/CREATININE RATIO 19.6 (5.4-32.0); CALCIUM 6.9 MG/DL (8.5-10.1); CHLORIDE 105 MMOL/L (99-107); CREATININE 4.18 MG/DL (0.60-1.10); MAGNESIUM 1.5 MG/DL (1.5-2.4); TOTAL CARBON DIOXIDE 18.9 MMOL/L (24-32); eGFR 15 ML/MIN
[2017-08-05 00:48] LABS: ALBUMIN/GLOBULIN RATIO 0.1 (1.1-1.5); ANION GAP 16 (8-16); GLUCOSE 230 MG/DL (70-104); PHOSPHORUS 5.7 MG/DL (2.3-4.5); POTASSIUM 3.1 MMOL/L (3.5-5.1); SODIUM 140 MMOL/L (135-145)
[2017-08-05 01:10] LABS: ANISOCYTOSIS 3+; PLATELET ESTIMATE NORMAL; TOTAL CELLS COUNTED 100
[2017-08-05] MEDS: [UNRECOGNIZED DRUG - REMARK] IV SCH ×5 (01:41)
[2017-08-05] MEDS: potassium Cl oral solution 20 MEQ/15 ML PO PRN ×2 (01:42→05:44)
[2017-08-05] MEDS: mineral oil/petrolatum ophthal oint EACHEYE SCH ×4 (01:42→19:09)
[2017-08-05] MEDS: midazolam 100mg in NS 100ml 100 ML IV PRN (01:42)
[2017-08-05] MEDS: metoclopramide 10mg/10 ml UD oral solution NG SCH ×4 (01:42→19:06)
[2017-08-05] MEDS: piperacillin-tazo 2.25gm/50ml 50 ML IV SCH ×4 (01:42→19:10)
[2017-08-05] MEDS: insulin regular, human vial - multi-dose SQ SCH ×4 (01:47→21:03)
[2017-08-05] MEDS: ipratropium/albuterol 3ml nebule NEB SCH ×6 (03:42→23:06)
[2017-08-05 04:51] LABS: ABG BASE EXCESS -9.2 mmol/L (-2.0-3.0); ABG HCO3 15.8 mmol/L (22.0-26.0); ABG OXYGEN SATURATION 98.6 % (95-98); ABG PCO2 (T) 31.1 mmHg (35.0-48.0); ABG PH (T) 7.324 (7.350-7.450); ABG PO2 (T) 134.5 mmHg (83-108); ALLEN'S TEST Positive; FCOHb 0.3 % (0.5-1.5); FMetHb 0.1 % (0.3-1.12); FO2Hb 98.2 % (94-100); MINUTE VOLUME 14 L/min; PATIENT TEMPERATURE 36.9; PEEP 5 cm H2O; RESPIRATORY RATE 26 b/min; RESPIRATORY RATE (OBSERVED) 26 b/min
[2017-08-05] MEDS: FENTANYL-0.9 % NACL/PF 100 ML IV PRN ×2 (07:13→18:37)
[2017-08-05] MEDS: lactobacillus rhamnosus 10,000 MMU CELLS/CAPSULE PO SCH ×2 (08:09→19:18)
[2017-08-05] MEDS: fluconazole-Diflucan 200mg/NS 100 ML IV SCH (08:09)
[2017-08-05] MEDS: linezolid 600mg/300ml PREMIX 300 ML IV SCH ×2 (08:09→19:18)
[2017-08-05] MEDS: docusate sodium 100mg/10ml UD cup PO SCH ×2 (08:09→19:06)
[2017-08-05] MEDS: folic acid 1mg tablet PO SCH (08:09)
[2017-08-05] MEDS: famotidine/PF 10 mg/ml inj IV SCH ×2 (08:09→19:09)
[2017-08-05] MEDS: methylnaltrexone br 12mg/0.6ml inj***SubQ only SQ SCH (08:09)
[2017-08-05] MEDS: multivitamins, therapeutics tablet PO SCH (08:10)
[2017-08-05] MEDS: thiamine 100mg tablet PO SCH (08:10)
[2017-08-05] MEDS: heparin, porcine 5000 units/ml vial SQ SCH ×2 (08:18→19:08)
[2017-08-05] MEDS: sodium bicarbonate (8.4%) inj. 150 MEQ in dextrose 5%-water 1,000 ML IV SCH (12:31)
[2017-08-05] MEDS: insulin glargine (Lantus) pen - multi-dose SQ SCH (20:58)
[2017-08-06] VITALS (25 sets, daily range): BP systolic 82–126; BP diastolic 39–64
[2017-08-06] MEDS: FENTANYL-0.9 % NACL/PF 100 ML IV PRN (02:01)
[2017-08-06] MEDS: mineral oil/petrolatum ophthal oint EACHEYE SCH ×4 (02:01→20:41)
[2017-08-06] MEDS: metoclopramide 10mg/10 ml UD oral solution NG SCH ×2 (02:20→09:19)
[2017-08-06] MEDS: piperacillin-tazo 2.25gm/50ml 50 ML IV SCH ×2 (02:21→09:20)
[2017-08-06 03:03] LABS: BASOPHILS # (AUTO) 0.1 X10'3 (0-0.2); BASOPHILS % (AUTO) 0.2 % (0-1); EOSINOPHILS # (AUTO) 0.2 X10'3 (0-0.9); HEMOGLOBIN 7.2 g/dl (14.0-17.9); LYMPHOCYTES % (AUTO) 9.5 % (21-51); MEAN CORPUSCULAR HEMOGLOBIN 32.7 PG (27.0-31.0); MEAN CORPUSCULAR HGB CONC 33.4 % (33.0-36.5); MEAN CORPUSCULAR VOLUME 97.9 FL (78-98); MEAN PLATELET VOLUME 9.6 FL (7.4-10.4); MONOCYTES # (AUTO) 1.7 X10'3 (0-0.9); NEUTROPHILS # (AUTO) 17.3 X10'3 (1.8-7.7); NEUTROPHILS % (AUTO) 81.3 % (42-75); PLATELET COUNT 109 X10'3 (140-440); RED BLOOD COUNT 2.19 X10'6 (4.70-6.10); RED CELL DISTRIBUTION WIDTH 24.4 % (11.5-14.5); WHITE BLOOD COUNT 21.2 X10'3 (4.5-11.0)
[2017-08-06] MEDS: [UNRECOGNIZED DRUG - REMARK] IV SCH ×10 (03:06→22:48)
[2017-08-06] MEDS: ipratropium/albuterol 3ml nebule NEB SCH ×6 (03:06→23:10)
[2017-08-06 03:10] LABS: HEMATOCRIT 21.4 % (42.0-52.0)
[2017-08-06 03:26] LABS: ABG BASE EXCESS -8.6 mmol/L (-2.0-3.0); ABG HCO3 17.1 mmol/L (22.0-26.0); ABG OXYGEN SATURATION 97.3 % (95-98); ABG PCO2 (T) 36.7 mmHg (35.0-48.0); ABG PH (T) 7.289 (7.350-7.450); ABG PO2 (T) 102.5 mmHg (83-108); ALLEN'S TEST Positive; FCOHb 0.3 % (0.5-1.5); FMetHb 0.3 % (0.3-1.12); FO2Hb 96.7 % (94-100); MINUTE VOLUME 13 L/min; PATIENT TEMPERATURE 37.3; PEEP 5 cm H2O; RESPIRATORY RATE 26 b/min; RESPIRATORY RATE (OBSERVED) 26 b/min
[2017-08-06 03:28] LABS: ANISOCYTOSIS 3+; PLATELET ESTIMATE DECREASED; TOTAL CELLS COUNTED 100
[2017-08-06 03:32] LABS: ALANINE AMINOTRANSFERASE 59 U/L (12-78); ALBUMIN 0.7 G/DL (3.4-5.0); ALKALINE PHOSPHATASE 75 IU/L (46-116); ASPARTATE AMINO TRANSFERASE 83 U/L (10-37); BILIRUBIN,TOTAL 4.4 MG/DL (0.1-1.0); BLOOD UREA NITROGEN 94 MG/DL (7-18); BUN/CREATININE RATIO 18.3 (5.4-32.0); CALCIUM 7.1 MG/DL (8.5-10.1); CHLORIDE 101 MMOL/L (99-107); CREATININE 5.14 MG/DL (0.60-1.10); MAGNESIUM 1.2 MG/DL (1.5-2.4); TOTAL CARBON DIOXIDE 18.7 MMOL/L (24-32); eGFR 12 ML/MIN
[2017-08-06 04:08] LABS: ALBUMIN/GLOBULIN RATIO 0.1 (1.1-1.5); ANION GAP 18 (8-16); GLUCOSE 185 MG/DL (70-104); PHOSPHORUS 4.8 MG/DL (2.3-4.5); SODIUM 138 MMOL/L (135-145); TOTAL PROTEIN 6.2 G/DL (6.4-8.2)
[2017-08-06 04:17] LABS: POTASSIUM 2.8 MMOL/L (3.5-5.1)
[2017-08-06] MEDS ORDERED: potassium Cl 40MEQ/250ML bag 250 ML IV ONE (04:49)
[2017-08-06] MEDS: multivitamin oral liquid (Certavite) 5ml cup PO SCH (09:18)
[2017-08-06] MEDS: docusate sodium 100mg/10ml UD cup PO SCH ×2 (09:19→20:00)
[2017-08-06] MEDS: folic acid 1mg tablet PO SCH (09:19)
[2017-08-06] MEDS: famotidine/PF 10 mg/ml inj IV SCH ×2 (09:19→20:40)
[2017-08-06] MEDS: lactobacillus rhamnosus 10,000 MMU CELLS/CAPSULE PO SCH ×2 (09:19→20:40)
[2017-08-06] MEDS: linezolid 600mg/300ml PREMIX 300 ML IV SCH ×2 (09:20→20:40)
[2017-08-06] MEDS: fluconazole-Diflucan 200mg/NS 100 ML IV SCH (09:20)
[2017-08-06] MEDS: sodium bicarbonate (8.4%) inj. 150 MEQ in dextrose 5%-water 1,000 ML IV SCH (09:21)
[2017-08-06] MEDS: heparin, porcine 5000 units/ml vial SQ SCH ×2 (09:21→20:00)
[2017-08-06] MEDS: thiamine 100mg tablet PO SCH (09:21)
[2017-08-06] MEDS ORDERED: cefepime 1GM/NS ADD-VANTAGE 100 ML IV SCH (09:40)
[2017-08-06] MEDS: insulin regular, human vial - multi-dose SQ SCH ×3 (09:41→20:50)
[2017-08-06] MEDS: insulin glargine (Lantus) pen - multi-dose SQ SCH (20:51)
[2017-08-07] VITALS (24 sets, daily range): BP systolic 120–154; BP diastolic 58–76
[2017-08-07] MEDS: mineral oil/petrolatum ophthal oint EACHEYE SCH ×4 (02:04→20:09)
[2017-08-07] MEDS ORDERED: insulin regular, human vial - multi-dose ONE (02:16)
[2017-08-07] MEDS: insulin regular, human vial - multi-dose SQ SCH ×4 (02:25→20:34)
[2017-08-07] MEDS: ipratropium/albuterol 3ml nebule NEB SCH ×6 (03:12→23:19)
[2017-08-07 03:31] LABS: ABG BASE EXCESS -7.9 mmol/L (-2.0-3.0); ABG HCO3 17.1 mmol/L (22.0-26.0); ABG OXYGEN SATURATION 96.3 % (95-98); ABG PCO2 (T) 33.4 mmHg (35.0-48.0); ABG PH (T) 7.329 (7.350-7.450); ABG PO2 (T) 87.9 mmHg (83-108); ALLEN'S TEST Positive; FCOHb 0.3 % (0.5-1.5); FMetHb 0.1 % (0.3-1.12); FO2Hb 95.9 % (94-100); MINUTE VOLUME 14 L/min; PATIENT TEMPERATURE 37.4; PEEP 5 cm H2O; RESPIRATORY RATE 26 b/min; RESPIRATORY RATE (OBSERVED) 28 b/min; TOTAL HEMOGLOBIN 8.9 G/dl (14.0-18.0)
[2017-08-07 04:20] LABS: PREALBUMIN 7.2 MG/DL (19-36)
[2017-08-07 04:59] LABS: TRIGLYCERIDES 89 MG/DL (20-135)
[2017-08-07 05:52] LABS: BASOPHILS # (AUTO) 0.1 X10'3 (0-0.2); BASOPHILS % (AUTO) 0.3 % (0-1); EOSINOPHILS # (AUTO) 0.3 X10'3 (0-0.9); EOSINOPHILS % (AUTO) 1.3 % (0-6); HEMATOCRIT 23.5 % (42.0-52.0); HEMOGLOBIN 8.1 g/dl (14.0-17.9); LYMPHOCYTES # (AUTO) 1.8 X10'3 (1.1-4.8); LYMPHOCYTES % (AUTO) 8.5 % (21-51); MEAN CORPUSCULAR HEMOGLOBIN 32.6 PG (27.0-31.0); MEAN CORPUSCULAR HGB CONC 34.4 % (33.0-36.5); MEAN CORPUSCULAR VOLUME 94.8 FL (78-98); MEAN PLATELET VOLUME 9.5 FL (7.4-10.4); MONOCYTES # (AUTO) 1.9 X10'3 (0-0.9); MONOCYTES % (AUTO) 8.7 % (2-12); NEUTROPHILS # (AUTO) 17.4 X10'3 (1.8-7.7); NEUTROPHILS % (AUTO) 81.2 % (42-75); PLATELET COUNT 107 X10'3 (140-440); RED BLOOD COUNT 2.48 X10'6 (4.70-6.10); RED CELL DISTRIBUTION WIDTH 25.4 % (11.5-14.5); WHITE BLOOD COUNT 21.4 X10'3 (4.5-11.0)
[2017-08-07 06:01] LABS: ALANINE AMINOTRANSFERASE 58 U/L (12-78); ALBUMIN 0.7 G/DL (3.4-5.0); ALKALINE PHOSPHATASE 87 IU/L (46-116); ANION GAP 19 (8-16); ASPARTATE AMINO TRANSFERASE 89 U/L (10-37); BILIRUBIN,TOTAL 4.8 MG/DL (0.1-1.0); BLOOD UREA NITROGEN 105 MG/DL (7-18); BUN/CREATININE RATIO 17.9 (5.4-32.0); CALCIUM 7.4 MG/DL (8.5-10.1); CHLORIDE 96 MMOL/L (99-107); CREATININE 5.86 MG/DL (0.60-1.10); GLUCOSE 268 MG/DL (70-104); SODIUM 131 MMOL/L (135-145); eGFR 10 ML/MIN
[2017-08-07 06:09] LABS: ALBUMIN/GLOBULIN RATIO 0.1 (1.1-1.5); POTASSIUM 3.1 MMOL/L (3.5-5.1); TOTAL PROTEIN 6.7 G/DL (6.4-8.2)
[2017-08-07 07:11] LABS: TOTAL CELLS COUNTED 100
[2017-08-07 07:13] LABS: ANISOCYTOSIS 3+; PLATELET ESTIMATE DECREASED; POIKILOCYTOSIS FEW
[2017-08-07 07:14] LABS: TOXIC VACUOLATION FEW
[2017-08-07] MEDS: heparin, porcine 5000 units/ml vial SQ SCH ×2 (08:00→20:10)
[2017-08-07] MEDS: docusate sodium 100mg/10ml UD cup PO SCH ×2 (08:00→19:51)
[2017-08-07] MEDS: multivitamin oral liquid (Certavite) 5ml cup PO SCH (08:00)
[2017-08-07] MEDS: lactobacillus rhamnosus 10,000 MMU CELLS/CAPSULE PO SCH ×2 (08:31→20:09)
[2017-08-07] MEDS: thiamine 100mg tablet PO SCH (08:31)
[2017-08-07] MEDS: famotidine/PF 10 mg/ml inj IV SCH ×2 (08:31→20:09)
[2017-08-07] MEDS: folic acid 1mg tablet PO SCH (08:31)
[2017-08-07] MEDS: methylnaltrexone br 12mg/0.6ml inj***SubQ only SQ SCH ×2 (08:32→08:55)
[2017-08-07] MEDS: sodium bicarbonate (8.4%) inj. 150 MEQ in dextrose 5%-water 1,000 ML IV SCH (08:36)
[2017-08-07] MEDS: micafungin inj 100 MG in normal saline 100ml IV soln 100 ML IV SCH (09:16)
[2017-08-07] MEDS: levoFLOXACIN-Levaquin 250mg/D5 50 ML IV SCH (10:46)
[2017-08-07] MEDS: metroNIDAZOLE-Flagyl 500mg/NS 100 ML IV SCH ×2 (12:12→16:41)
[2017-08-07] MEDS: NORepinephrine 8mg/ 250ml NS 250 ML IV SCH (14:32)
[2017-08-07] MEDS ORDERED: calcium chloride inj. 10,000 MG in normal saline 500ml IV soln 400 ML IV PRN ×2 (15:25→20:41)
[2017-08-07] MEDS ORDERED: calcium chloride inj. 1,000 MG in normal saline 100ml IV soln 100 ML IV PRN (15:25)
[2017-08-07] MEDS ORDERED: sodium phosphate inj. 30 MMOL in normal saline 250ml IV soln 250 ML IV PRN (15:25)
[2017-08-07] MEDS ORDERED: potassium Cl 20mEq/100mL bag 100 ML IV PRN (15:25)
[2017-08-07] MEDS: Duosol 4k/NO Calcium 5,000 ML HE SCH ×5 (17:56→23:59)
[2017-08-07] MEDS: citrate dextrose 1000ml IV sol 1,000 ML IV PRN ×2 (20:21→22:46)
[2017-08-07] MEDS: insulin glargine (Lantus) pen - multi-dose SQ SCH (20:29)
[2017-08-07 21:42] LABS: BASOPHILS % (AUTO) 0.2 % (0-1); EOSINOPHILS # (AUTO) 0.3 X10'3 (0-0.9); EOSINOPHILS % (AUTO) 1.4 % (0-6); HEMATOCRIT 24.8 % (42.0-52.0); HEMOGLOBIN 8.3 g/dl (14.0-17.9); LYMPHOCYTES # (AUTO) 1.4 X10'3 (1.1-4.8); MEAN CORPUSCULAR HEMOGLOBIN 31.9 PG (27.0-31.0); MEAN CORPUSCULAR HGB CONC 33.3 % (33.0-36.5); MEAN CORPUSCULAR VOLUME 95.6 FL (78-98); MEAN PLATELET VOLUME 9.2 FL (7.4-10.4); MONOCYTES # (AUTO) 1.3 X10'3 (0-0.9); MONOCYTES % (AUTO) 6.2 % (2-12); NEUTROPHILS # (AUTO) 17.4 X10'3 (1.8-7.7); NEUTROPHILS % (AUTO) 85.2 % (42-75); PLATELET COUNT 93 X10'3 (140-440); RED BLOOD COUNT 2.59 X10'6 (4.70-6.10); RED CELL DISTRIBUTION WIDTH 24.6 % (11.5-14.5); WHITE BLOOD COUNT 20.5 X10'3 (4.5-11.0)
[2017-08-07 21:56] LABS: ALBUMIN 0.6 G/DL (3.4-5.0); ANION GAP 17 (8-16); BLOOD UREA NITROGEN 96 MG/DL (7-18); BUN/CREATININE RATIO 17.3 (5.4-32.0); CHLORIDE 95 MMOL/L (99-107); CREATININE 5.54 MG/DL (0.60-1.10); MAGNESIUM 1.1 MG/DL (1.5-2.4); SODIUM 130 MMOL/L (135-145); TOTAL CARBON DIOXIDE 17.8 MMOL/L (24-32); eGFR 11 ML/MIN
[2017-08-07 22:05] LABS: GLUCOSE 216 MG/DL (70-104); PHOSPHORUS 4.1 MG/DL (2.3-4.5); POTASSIUM 3.2 MMOL/L (3.5-5.1)
[2017-08-07] MEDS: FENTANYL-0.9 % NACL/PF 100 ML IV PRN (22:09)
[2017-08-07] MEDS: potassium Cl 40MEQ/250ML bag 250 ML IV PRN (22:45)
[2017-08-07] MEDS: magnesium 4gm in 100ml NS 100 ML IV PRN (22:54)
[2017-08-08] VITALS (24 sets, daily range): BP systolic 106–133; BP diastolic 59–69
[2017-08-08] MEDS: metroNIDAZOLE-Flagyl 500mg/NS 100 ML IV SCH ×4 (00:05→23:45)
[2017-08-08] MEDS: Duosol 4k/NO Calcium 5,000 ML HE SCH ×14 (00:19→21:42)
[2017-08-08] MEDS: mineral oil/petrolatum ophthal oint EACHEYE SCH ×4 (02:05→20:12)
[2017-08-08] MEDS: citrate dextrose 1000ml IV sol 1,000 ML IV PRN ×6 (02:06→23:53)
[2017-08-08] MEDS: insulin regular, human vial - multi-dose SQ SCH ×3 (02:22→20:30)
[2017-08-08] MEDS: [UNRECOGNIZED DRUG - REMARK] IV SCH ×10 (02:41→23:45)
[2017-08-08 02:43] LABS: BASOPHILS % (AUTO) 0.2 % (0-1); EOSINOPHILS # (AUTO) 0.4 X10'3 (0-0.9); EOSINOPHILS % (AUTO) 1.9 % (0-6); HEMATOCRIT 23.8 % (42.0-52.0); LYMPHOCYTES # (AUTO) 1.5 X10'3 (1.1-4.8); LYMPHOCYTES % (AUTO) 6.5 % (21-51); MEAN CORPUSCULAR HEMOGLOBIN 32.3 PG (27.0-31.0); MEAN CORPUSCULAR HGB CONC 33.7 % (33.0-36.5); MEAN CORPUSCULAR VOLUME 95.8 FL (78-98); MEAN PLATELET VOLUME 8.8 FL (7.4-10.4); MONOCYTES # (AUTO) 1.6 X10'3 (0-0.9); MONOCYTES % (AUTO) 7.2 % (2-12); NEUTROPHILS # (AUTO) 18.9 X10'3 (1.8-7.7); NEUTROPHILS % (AUTO) 84.2 % (42-75); PLATELET COUNT 83 X10'3 (140-440); RED BLOOD COUNT 2.48 X10'6 (4.70-6.10); RED CELL DISTRIBUTION WIDTH 24.6 % (11.5-14.5); WHITE BLOOD COUNT 22.4 X10'3 (4.5-11.0)
[2017-08-08 03:03] LABS: ALBUMIN 0.6 G/DL (3.4-5.0); ANION GAP 15 (8-16); BLOOD UREA NITROGEN 83 MG/DL (7-18); BUN/CREATININE RATIO 17.8 (5.4-32.0); CHLORIDE 96 MMOL/L (99-107); CREATININE 4.67 MG/DL (0.60-1.10); MAGNESIUM 1.9 MG/DL (1.5-2.4); SODIUM 131 MMOL/L (135-145); TOTAL CARBON DIOXIDE 20.1 MMOL/L (24-32); eGFR 13 ML/MIN
[2017-08-08 03:05] LABS: GLUCOSE 168 MG/DL (70-104); PHOSPHORUS 3.2 MG/DL (2.3-4.5); POTASSIUM 3.3 MMOL/L (3.5-5.1)
[2017-08-08] MEDS: ipratropium/albuterol 3ml nebule NEB SCH ×6 (03:32→23:41)
[2017-08-08] MEDS: potassium Cl 40MEQ/250ML bag 250 ML IV PRN (03:42)
[2017-08-08 03:51] LABS: ABG BASE EXCESS -5.3 mmol/L (-2.0-3.0); ABG HCO3 18.5 mmol/L (22.0-26.0); ABG OXYGEN SATURATION 99.2 % (95-98); ABG PCO2 (T) 29.3 mmHg (35.0-48.0); ABG PH (T) 7.417 (7.350-7.450); ABG PO2 (T) 156.3 mmHg (83-108); ALLEN'S TEST Positive; FMetHb 0.1 % (0.3-1.12); FO2Hb 99.1 % (94-100); PATIENT TEMPERATURE 36.6; PEEP 5 cm H2O; RESPIRATORY RATE 25 b/min; RESPIRATORY RATE (OBSERVED) 25 b/min; TOTAL HEMOGLOBIN 8.9 G/dl (14.0-18.0)
[2017-08-08] MEDS: NORepinephrine 8mg/ 250ml NS 250 ML IV SCH ×2 (05:26→19:15)
[2017-08-08] MEDS: sodium bicarbonate (8.4%) inj. 150 MEQ in dextrose 5%-water 1,000 ML IV SCH (08:00)
[2017-08-08] MEDS: docusate sodium 100mg/10ml UD cup PO SCH ×2 (08:00→20:12)
[2017-08-08] MEDS: micafungin inj 100 MG in normal saline 100ml IV soln 100 ML IV SCH (08:48)
[2017-08-08 08:55] LABS: BASOPHILS % (AUTO) 0.1 % (0-1); EOSINOPHILS # (AUTO) 0.5 X10'3 (0-0.9); EOSINOPHILS % (AUTO) 2.5 % (0-6); HEMATOCRIT 23.5 % (42.0-52.0); LYMPHOCYTES # (AUTO) 1.5 X10'3 (1.1-4.8); MEAN CORPUSCULAR HEMOGLOBIN 32.4 PG (27.0-31.0); MEAN CORPUSCULAR HGB CONC 34.2 % (33.0-36.5); MEAN CORPUSCULAR VOLUME 94.7 FL (78-98); MONOCYTES # (AUTO) 1.7 X10'3 (0-0.9); MONOCYTES % (AUTO) 8.2 % (2-12); NEUTROPHILS # (AUTO) 17.1 X10'3 (1.8-7.7); NEUTROPHILS % (AUTO) 82.2 % (42-75); PLATELET COUNT 83 X10'3 (140-440); RED BLOOD COUNT 2.48 X10'6 (4.70-6.10); RED CELL DISTRIBUTION WIDTH 25.2 % (11.5-14.5); WHITE BLOOD COUNT 20.9 X10'3 (4.5-11.0)
[2017-08-08 09:09] LABS: ALBUMIN 0.6 G/DL (3.4-5.0); ANION GAP 12 (8-16); BLOOD UREA NITROGEN 69 MG/DL (7-18); CHLORIDE 98 MMOL/L (99-107); CREATININE 4.07 MG/DL (0.60-1.10); GLUCOSE 183 MG/DL (70-104); MAGNESIUM 1.7 MG/DL (1.5-2.4); PHOSPHORUS 2.7 MG/DL (2.3-4.5); POTASSIUM 3.5 MMOL/L (3.5-5.1); SODIUM 132 MMOL/L (135-145); TOTAL CARBON DIOXIDE 22.2 MMOL/L (24-32); eGFR 15 ML/MIN
[2017-08-08 09:29] LABS: TOTAL CELLS COUNTED 100
[2017-08-08 09:31] LABS: ANISOCYTOSIS 3+; PLATELET ESTIMATE DECREASED; POLYCHROMASIA 1+
[2017-08-08 09:32] LABS: POIKILOCYTOSIS 1+
[2017-08-08] MEDS: levoFLOXACIN-Levaquin 250mg/D5 50 ML IV SCH (10:50)
[2017-08-08] MEDS: lactobacillus rhamnosus 10,000 MMU CELLS/CAPSULE PO SCH ×2 (10:52→20:12)
[2017-08-08] MEDS: thiamine 100mg tablet PO SCH (10:52)
[2017-08-08] MEDS: multivitamin oral liquid (Certavite) 5ml cup PO SCH (10:52)
[2017-08-08] MEDS: folic acid 1mg tablet PO SCH (10:52)
[2017-08-08] MEDS: heparin, porcine 5000 units/ml vial SQ SCH ×2 (10:53→20:12)
[2017-08-08] MEDS: famotidine/PF 10 mg/ml inj IV SCH ×2 (10:53→20:12)
[2017-08-08 16:10] LABS: BASOPHILS # (AUTO) 0.1 X10'3 (0-0.2); BASOPHILS % (AUTO) 0.3 % (0-1); EOSINOPHILS # (AUTO) 0.4 X10'3 (0-0.9); EOSINOPHILS % (AUTO) 2.3 % (0-6); HEMATOCRIT 23.8 % (42.0-52.0); HEMOGLOBIN 7.9 g/dl (14.0-17.9); LYMPHOCYTES # (AUTO) 1.1 X10'3 (1.1-4.8); LYMPHOCYTES % (AUTO) 5.9 % (21-51); MEAN CORPUSCULAR HEMOGLOBIN 32.2 PG (27.0-31.0); MEAN CORPUSCULAR HGB CONC 33.4 % (33.0-36.5); MEAN CORPUSCULAR VOLUME 96.4 FL (78-98); MEAN PLATELET VOLUME 9.2 FL (7.4-10.4); MONOCYTES # (AUTO) 1.6 X10'3 (0-0.9); MONOCYTES % (AUTO) 8.7 % (2-12); NEUTROPHILS # (AUTO) 15.4 X10'3 (1.8-7.7); NEUTROPHILS % (AUTO) 82.8 % (42-75); PLATELET COUNT 77 X10'3 (140-440); RED BLOOD COUNT 2.47 X10'6 (4.70-6.10); RED CELL DISTRIBUTION WIDTH 25.3 % (11.5-14.5); WHITE BLOOD COUNT 18.6 X10'3 (4.5-11.0)
[2017-08-08 16:19] LABS: ALBUMIN 0.6 G/DL (3.4-5.0); ANION GAP 10 (8-16); BLOOD UREA NITROGEN 56 MG/DL (7-18); BUN/CREATININE RATIO 16.4 (5.4-32.0); CHLORIDE 99 MMOL/L (99-107); CREATININE 3.41 MG/DL (0.60-1.10); GLUCOSE 121 MG/DL (70-104); MAGNESIUM 1.5 MG/DL (1.5-2.4); SODIUM 133 MMOL/L (135-145); TOTAL CARBON DIOXIDE 23.8 MMOL/L (24-32); eGFR 19 ML/MIN
[2017-08-08 16:20] LABS: PHOSPHORUS 2.5 MG/DL (2.3-4.5); POTASSIUM 3.5 MMOL/L (3.5-5.1)
[2017-08-08] MEDS: insulin glargine (Lantus) pen - multi-dose SQ SCH (20:32)
[2017-08-08 20:40] LABS: BASOPHILS # (AUTO) 0.1 X10'3 (0-0.2); BASOPHILS % (AUTO) 0.4 % (0-1); EOSINOPHILS # (AUTO) 0.4 X10'3 (0-0.9); EOSINOPHILS % (AUTO) 2.5 % (0-6); HEMATOCRIT 23.2 % (42.0-52.0); HEMOGLOBIN 7.8 g/dl (14.0-17.9); LYMPHOCYTES % (AUTO) 5.8 % (21-51); MEAN CORPUSCULAR HEMOGLOBIN 32.1 PG (27.0-31.0); MEAN CORPUSCULAR HGB CONC 33.4 % (33.0-36.5); MEAN CORPUSCULAR VOLUME 96.3 FL (78-98); MEAN PLATELET VOLUME 9.2 FL (7.4-10.4); MONOCYTES # (AUTO) 1.5 X10'3 (0-0.9); MONOCYTES % (AUTO) 8.5 % (2-12); NEUTROPHILS # (AUTO) 14.4 X10'3 (1.8-7.7); NEUTROPHILS % (AUTO) 82.8 % (42-75); PLATELET COUNT 74 X10'3 (140-440); RED BLOOD COUNT 2.41 X10'6 (4.70-6.10); RED CELL DISTRIBUTION WIDTH 25.9 % (11.5-14.5); WHITE BLOOD COUNT 17.4 X10'3 (4.5-11.0)
[2017-08-08 20:42] LABS: ALBUMIN 0.6 G/DL (3.4-5.0); ANION GAP 10 (8-16); BLOOD UREA NITROGEN 49 MG/DL (7-18); BUN/CREATININE RATIO 16.2 (5.4-32.0); CHLORIDE 99 MMOL/L (99-107); CREATININE 3.02 MG/DL (0.60-1.10); GLUCOSE 230 MG/DL (70-104); MAGNESIUM 1.5 MG/DL (1.5-2.4); SODIUM 134 MMOL/L (135-145); TOTAL CARBON DIOXIDE 24.6 MMOL/L (24-32); eGFR 22 ML/MIN
[2017-08-08 20:56] LABS: PHOSPHORUS 2.5 MG/DL (2.3-4.5); POTASSIUM 3.5 MMOL/L (3.5-5.1)
[2017-08-08] MEDS: magnesium 4gm in 100ml NS 100 ML IV PRN (21:02)
[2017-08-09] VITALS: BP 128/60
[2017-08-09] MEDS: Duosol 4k/NO Calcium 5,000 ML HE SCH ×2 (00:21→02:30)
[2017-08-09 01:00] VITALS: BP 119/58
[2017-08-09 02:00] VITALS: BP 128/67
[2017-08-09] MEDS: mineral oil/petrolatum ophthal oint EACHEYE SCH (02:30)
[2017-08-09] MEDS: ipratropium/albuterol 3ml nebule NEB SCH (03:00)
[2017-08-09] MEDS ORDERED: levoFLOXACIN-Levaquin 250mg/D5 50 ML IV SCH (21:00)
== END 2017-08-09 02:30 | disposition short-term general hospital (02) | DRG 870 ==
LOC: ER 08:32 → ED HOLD 09:10 → CICU 2S 10:00
PROVIDERS: ADMIT Internal Medicine Critical Care Medicine; ATTEND Internal Medicine Critical Care Medicine
PROC: 5A1955Z Respiratory Ventilation, Greater than 96 Consecutive Hours (ICD-10-PCS; principal; 2017-07-23)
PROC: 0BH17EZ Insertion of Endotracheal Airway into Trachea, Via Natural or Artificial Opening (ICD-10-PCS; 2017-07-23)
PROC: 30233N1 Transfusion of Nonautologous Red Blood Cells into Peripheral Vein, Percutaneous Approach (ICD-10-PCS; 2017-07-25)
PROC: 30233N1 Transfusion of Nonautologous Red Blood Cells into Peripheral Vein, Percutaneous Approach (ICD-10-PCS; 2017-07-27)
PROC: 02HV33Z Insertion of Infusion Device into Superior Vena Cava, Percutaneous Approach (ICD-10-PCS; 2017-08-02)
PROC: B548ZZA Ultrasonography of Superior Vena Cava, Guidance (ICD-10-PCS; 2017-08-02)
PROC: 3E0436Z Introduction of Nutritional Substance into Central Vein, Percutaneous Approach (ICD-10-PCS; 2017-08-04)
PROC: 02HV33Z Insertion of Infusion Device into Superior Vena Cava, Percutaneous Approach (ICD-10-PCS; 2017-08-07)
PROC: B548ZZA Ultrasonography of Superior Vena Cava, Guidance (ICD-10-PCS; 2017-08-07)
PROC: 5A1D90Z Performance of Urinary Filtration, Continuous, Greater than 18 hours Per Day (ICD-10-PCS; 2017-08-07)
DX: A41.01 Sepsis due to Methicillin susceptible Staphylococcus aureus (principal); J96.20 Acute and chronic respiratory failure, unspecified whether with hypoxia or hypercapnia; E43 Unspecified severe protein-calorie malnutrition; N17.0 Acute kidney failure with tubular necrosis; R65.21 Severe sepsis with septic shock; M72.6 Necrotizing fasciitis; K56.7 Ileus, unspecified; E87.0 Hyperosmolality and hypernatremia; R17 Unspecified jaundice; M86.8X8 Other osteomyelitis, other site; E87.4 Mixed disorder of acid-base balance; L03.313 Cellulitis of chest wall; K52.9 Noninfective gastroenteritis and colitis, unspecified; B96.89 Other specified bacterial agents as the cause of diseases classified elsewhere; L89.150 Pressure ulcer of sacral region, unstageable; I45.81 Long QT syndrome; B37.7 Candidal sepsis; E11.22 Type 2 diabetes mellitus with diabetic chronic kidney disease; E11.69 Type 2 diabetes mellitus with other specified complication; E66.9 Obesity, unspecified; F19.10 Other psychoactive substance abuse, uncomplicated; I10 Essential (primary) hypertension; N18.9 Chronic kidney disease, unspecified; Z80.43 Family history of malignant neoplasm of testis; Z83.3 Family history of diabetes mellitus; Z86.19 Personal history of other infectious and parasitic diseases; Z93.1 Gastrostomy status; Z88.5 Allergy status to narcotic agent; Z79.899 Other long term (current) drug therapy; Z79.4 Long term (current) use of insulin; Z68.37 Body mass index [BMI] 37.0-37.9, adult
CPT/HCPCS: 31628; 31645; 36415; 36569; 36600; 70450; 71045; 71250; 74176; 76775; 76937; 80048; 80053; 80069; 80202; 81001; 82248; 82330; 82570; 82803; 82948; 83036; 83605; 83735; 84100; 84132; 84134; 84145; 84300; 84478; 85018; 85025; 85379; 85384; 85610; 85730; 86885; 86900; 86901; 86920; 87040; 87070; 87075; 87077; 87088; 87186; 87207; 87324; 87449; 93005; 94002; 94003; 94640; 94760; 95816; 99291; A4310; A4623; A4649; A6209; A6212; A6213; A6223; A6224; A6243; A6253; A6255; A6257; A6402; A6446; A6449; A7015; A7521; C1758; J0690; J0692; J1364; J1450; J1644; J1815; J1940; J1956; J2020; J2248; J2250; J2543; J2765; J3370; J3430; J3475; J3480; J3490; J7030; J7042; J7070; J8597; P9016; P9045; P9047